=== PATIENT | male | born 1955 | race Caucasian/White ===

== ENCOUNTER → 2019-10-28 13:07 | Outpatient (BNVA) | payer MEDICARE, SELFPAY | PROVIDERS: Visit Provider Nurse Practitioner Family | DX: E11.9 Type 2 diabetes mellitus without complications (principal); I10 Essential (primary) hypertension | CPT/HCPCS: 80053; 80061; 81000; 82044; 83036; 84443; 85025 ==

== ENCOUNTER → 2020-09-07 10:10 | Outpatient (BNVA) | payer MEDICARE, SELFPAY | PROVIDERS: Visit Provider Family Medicine | DX: E11.9 Type 2 diabetes mellitus without complications (principal); Z91.19 Patient's noncompliance with other medical treatment and regimen; I10 Essential (primary) hypertension; J44.9 Chronic obstructive pulmonary disease, unspecified | CPT/HCPCS: 36416; 82962 ==

== ENCOUNTER → 2020-12-22 00:01 | Outpatient (BNVA) | payer MEDICARE, SELFPAY | PROVIDERS: Visit Provider Nurse Practitioner Family | DX: Z20.822 Contact with and (suspected) exposure to COVID-19 (principal); J06.9 Acute upper respiratory infection, unspecified | CPT/HCPCS: 87635 ==

== ENCOUNTER → 2021-03-06 10:01 | Outpatient (BNVA) | payer MEDICARE, SELFPAY | DX: E11.9 Type 2 diabetes mellitus without complications (principal); M79.671 Pain in right foot; J44.9 Chronic obstructive pulmonary disease, unspecified; L03.115 Cellulitis of right lower limb; L03.116 Cellulitis of left lower limb; Z91.19 Patient's noncompliance with other medical treatment and regimen; E78.5 Hyperlipidemia, unspecified; I10 Essential (primary) hypertension; M25.532 Pain in left wrist | CPT/HCPCS: 80053; 80061; 82043; 82550; 83036; 83615; 84550; 85025; 85651 ==

== ENCOUNTER 2021-03-20 11:41 | Inpatient (IN) | payer MEDICARE, SELFPAY ==
[2021-03-20 12:27] VITALS: BP 139/79; PULSE 79; RESP 18; TEMP 36.4; O2SAT 100; BMI 21.4
--- NOTE | 2021-03-20 12:37 | XR_ITS ---
WS: [id number] Exam: XR toe RT min 2V [id number] Date/Time of Exam: 03/20/2021 12:50 PM Reason For Exam: L 5th The fifth toe is targeted for radiographic evaluation. No fracture or dislocation. There is soft tissue laceration edema of the fifth toe. XR/XR toe RT min 2V [id number] IMPRESSION: 1. No fracture or bony injury noted. 2. Soft tissue laceration and edema.
[2021-03-20 14:01] LABS: Glucose Point of Care 396 mg/dL (70-110)
--- NOTE | 2021-03-20 14:58 | ED_ITS ---
HPI - General Adult General: Chief complaint: Extremity Injury, Lower Stated complaint: L LITTLE TOE BLACK/PAINFUL,DIABETIC Time Seen by Provider: 03/20/21 14:39 History of Present Illness: HPI narrative: Patient is a 65-year-old male with a history of diabetes who presents the emergency room with chronic right foot gangrene with drainage x 1 month. Since that that has been progressively getting worse and patient has been in pain. Denies any fever/chill, nausea/vomiting, abdominal complaints, chest pain, SOB, or other issues at this time. Patient denies any trauma/IVDU. Onset: 1 month ago Duration:1 month Location:home Severity:severe Review of Systems Narrative: Constitutional: No fever, no chills. HEENT: No vision changes CV: No chest pain, no palpitations PULM: no cough, no dyspnea. GI: No abdominal pain, no N/V/D. : No dysuria MSKEL: No muscle pain, +R fifth digit gangrene with ulcerating foot wound SKIN: No new rashes, no lesions. NEURO: No headache, no focal weakness. HEME: No visible bruises PSYCH: Normal mood PFSH ED PFSH: Medical History Contact with chainsaw as cause of accidental injury Diabetes Diabetic neuropathy Hyperlipidemia Hypertension Smoking addiction Surgical History (Updated 03/20/21 @ 19:57 by Darren Albert MD) H/O hand surgery Chainsaw injury with nerve grafting from R ankle History of grafting procedure using peripheral nerve Family History Mother Diabetes Father Lung disease Social History Smoking and tobacco status: current every day smoker cigarettes Packs smoked per day: 1 Years cigarettes smoked: 46 Second hand smoke exposure: Yes Alcohol intake: current Alcohol intake frequency: 0-2 Drinks per Day Alcohol type: beer Caregiver/support person: Yes Lives independently: Yes Household members: significant other Marital status: service: No Current occupational status: disabled History of recent travel: No Current gender identity: Male Special lazarus needs: No Physical Exam Narrative: EXAM NARRATIVE: Head: Atraumatic Eyes: PERRL, conjunctiva without injection ENT: Mucous membrane moist NECK: Supple, ROM intact LUNGS: LCTAB, no crackles/rhonchi CV: RRR ABDOMEN: Soft, nontender in all quadrants EXTREMITY: Normal ROM SKIN: +R fifth toe gangrene and ulcerating lesion at the base of the 5th digit on the dorsal aspect, +neurovascular exam intact otherwise in the affected extremity NEURO: Awake and alert, no focal motor deficits PSYCH: Normal mood and affect Course Vital Signs: Vital signs: Vital Signs Temperature 98.4 F 03/22/21 20:00 Pulse Rate 72 03/22/21 20:36 Respiratory Rate 17 03/22/21 20:36 Blood Pressure 121/76 03/22/21 20:00 Pulse Oximetry 98 03/22/21 20:36 MDM - General Adult MDM Narrative: Medical decision making narrative: Pt is a 65-year-old male with history of diabetes presents emergency room 1 month of worsening right lower extremity pain, ulcerating wound, and dry gangrene of the fifth toe. On exam, patient is hemodynamically stable. Patient is noted to have a dry gangrene and infected diabetic ulcer of the RLE. X-ray negative for any gas pattern. White count within normal limit. Case was discussed with Dr. Ledesma who recommended antibiotics and surgical debridement. Patient received vancomycin and Zosyn in the emergency room. Disposition: Admission Lab Data: Labs: Lab Results 03/20/21 03/20/21 03/20/21 13:56 15:26 15:26 WBC 8.4 10^3/uL 10^3/ uL (4.0-10.0) RBC 4.48 10^6/uL 10^6 /uL (4.1-5.3) Hgb 13.7 g/dL g/dL (11.7-16.6) Hct 39.6 % L % (42.0-52.0) MCV 88.4 fl fl (80-94) MCH 30.6 pg pg (28.0-34.0) MCHC 34.6 g/dL g/dL (30.0-36.0) RDW 12.5 % % (12.1-15.1) Plt Count 329 10^3/cmm 10^3 /cmm (130-400) MPV 8.9 fL fL (7.4-10.4) Neut % (Auto) 64.2 % % Lymph % (Auto) 26.7 % % Traverse % (Auto) 5.7 % % Eos % (Auto) 2.3 % % Baso % (Auto) 0.7 % % Neut # (Auto) 5.37 10^3/uL 10^3 /uL (1.8-7.7) Lymph # (Auto) 2.2 10^3/uL 10^3/ uL (0.8-4.8) Traverse # (Auto) 0.5 10^3/uL 10^3/ uL (0.2-0.9) Eos # (Auto) 0.2 10^3/uL 10^3/ uL (0.0-0.8) Baso # (Auto) 0.1 10^3/uL 10^3/ uL (0.0-0.1) Nucleated RBC % (a uto) 0 % % Nucleated RBCs # 0.0 /100WBC /100W BC ESR Sodium 130 mmol/L L mmol /L (136-145) Potassium 4.5 mmol/L mmol/L (3.5-5.1) Chloride 94 mmol/L L mmol/ L (98-107) Carbon Dioxide 26 mmol/L mmol/L (22-29) Anion Gap 14.5 (5-19) BUN 6 mg/dL L mg/dL (8-23) Creatinine 0.5 mg/dL L mg/dL (0.7-1.2) GFR Calculation 167.9 mL/min H mL /min (90-130) Glucose 413 mg/dL H mg/dL (65-115) POC Glucose 396 mg/dL H mg/dL (70-110) Calculated Osmolal ity 285 mOsm/kg mOsm/ kg (285-295) Lactate Calcium 8.8 mg/dL mg/dL (8.5-10.5) Total Bilirubin 0.2 mg/dL mg/dL (0.15-1.2) AST 9 U/L U/L (0-40) ALT 7 U/L U/L (0-41) Alkaline Phosphata se 116 IU/L IU/L (40-130) C-Reactive Protein 7.1 mg/L H mg/L (0.0-4.9) Total Protein 6.5 g/dL L g/dL (6.6-8.7) Albumin 3.8 g/dL g/dL (3.5-5.2) Globulin 2.7 g/dL g/dL (1.3-4.6) 03/20/21 03/20/21 15:26 15:26 WBC RBC Hgb Hct MCV MCH MCHC RDW Plt Count MPV Neut % (Auto) Lymph % (Auto) Traverse % (Auto) Eos % (Auto) Baso % (Auto) Neut # (Auto) Lymph # (Auto) Traverse # (Auto) Eos # (Auto) Baso # (Auto) Nucleated RBC % (a uto) Nucleated RBCs # ESR 19 mm/hr H mm/hr (0-10) Sodium Potassium Chloride Carbon Dioxide Anion Gap BUN Creatinine GFR Calculation Glucose POC Glucose Calculated Osmolal ity Lactate 1.2 mmol/L mmol/L (0.5-2.2) Calcium Total Bilirubin AST ALT Alkaline Phosphata se C-Reactive Protein Total Protein Albumin Globulin Discharge Plan Discharge Patient Disposition: Admitted As Inpatient Admit Provider: Darren Albert Clinical Impression: Diabetic foot ulcer, Dry gangrene Condition: Stable Discharge Diet: Diabetic Discharge Activity: Limit activity as instructed Coding Level of Care Code ED Dental Secretary for Ledy Watts
[2021-03-20 15:02] VITALS: BP 172/84; PULSE 78; RESP 16; O2SAT 98
--- NOTE | 2021-03-20 15:22 | PC.PHAR ---
Addendum entered by Tammie Chiang 03/20/21 15:33: pt states he finished the keflex filled on 03/06/21 10d/s Original Note: pt states he takes care of his own medications-pt states he hasnt taken any of his medications since sat-pt states he no longer takes lisinopril-hctz pt states not taken for months ext med history shows last filled 10/04/20 30d/s-pt states he is still taking glipizide er 5mg daily ext med history shows last filled 10/04/20 30d/s and metformin 1000mg bid last filled on 10/26/20 30d/s pt states he had a build up of these medications and thats why he hasnt filled recently-notes are made in the pharmacy comments
[2021-03-20] MEDS: piperacillin-tazobactam 4.5 GM in sodium chloride 0.9% (plus) 50 ML IV (15:25)
[2021-03-20 15:34] LABS: Basophils # 0.1 10^3/uL (0.0-0.1); Basophils % 0.7 %; Eosinophils # 0.2 10^3/uL (0.0-0.8); Eosinophils % 2.3 %; Hematocrit 39.6 % (42.0-52.0); Hemoglobin 13.7 g/dL (11.7-16.6); Lymphocytes # 2.2 10^3/uL (0.8-4.8); Lymphocytes % 26.7 %; Mean Corpuscular HGB Conc 34.6 g/dL (30.0-36.0); Mean Corpuscular Hemoglobin 30.6 pg (28.0-34.0); Mean Corpuscular Volume 88.4 fl (80-94); Mean Platelet Volume 8.9 fL (7.4-10.4); Monocytes # 0.5 10^3/uL (0.2-0.9); Monocytes % 5.7 %; Neutrophils # 5.37 10^3/uL (1.8-7.7); Neutrophils % 64.2 %; Nucleated Red Blood Cells % 0 %; Platelet Count 329 10^3/cmm (130-400); Red Blood Count 4.48 10^6/uL (4.1-5.3); Red Cell Distribution Width 12.5 % (12.1-15.1); White Blood Count 8.4 10^3/uL (4.0-10.0)
[2021-03-20 15:42] VITALS: BP 172/84; O2SAT 97
[2021-03-20] MEDS: vancomycin 1,000 MG in sodium chloride 0.9% 250 ML 250 MG IV (16:05)
[2021-03-20 16:06] LABS: Alanine Aminotransferase 7 U/L (0-41); Albumin Level 3.8 g/dL (3.5-5.2); Alkaline Phosphatase 116 IU/L (40-130); Anion Gap 14.5 (5-19); Aspartate Amino Transferase 9 U/L (0-40); Blood Urea Nitrogen 6 mg/dL (8-23); C Reactive Protein 7.1 mg/L (0.0-4.9); Calcium 8.8 mg/dL (8.5-10.5); Carbon Dioxide 26 mmol/L (22-29); Chloride 94 mmol/L (98-107); Globulin 2.7 g/dL (1.3-4.6); Glomerular Filtration Rate 167.9 mL/min (90-130); Glucose 413 mg/dL (65-115); Osmolality Calculated 285 mOsm/kg (285-295); Potassium 4.5 mmol/L (3.5-5.1); Sodium 130 mmol/L (136-145); Total Bilirubin 0.2 mg/dL (0.15-1.2); Total Protein 6.5 g/dL (6.6-8.7)
[2021-03-20 16:07] LABS: Lactate (Lactic Acid level) 1.2 mmol/L (0.5-2.2)
[2021-03-20 17:00] VITALS: RESP 16
[2021-03-20] MEDS: morphine 4 mg/mL SDV 1 mL IVP (17:00)
[2021-03-20 17:44] VITALS: BP 161/78; PULSE 68; O2SAT 99
--- NOTE | 2021-03-20 17:45 | PC.NURSE ---
PATIENT APPEARS MOURNFUL OVER FOOT PAIN AND POTENTIAL LOSS OF TOE. NURSE SPOKE WITH PATIENT ABOUT NEED TO MONITOR DIABETES AND BLOOD SUGARS TO HELP PREVENT FURTHER INJURIES. PATIENT VERBALIZED UNDERSTANDING. PATIENT HAS NO FURTHER NEEDS AT THIS TIME.
[2021-03-20 19:08] VITALS: BP 119/67; PULSE 79; O2SAT 97
--- NOTE | 2021-03-20 19:32 | P.HP_ITS ---
Providers/Chief Complaint Admitting Physician: Darren Albert Primary Care Provider: Ema Smalls, INTERIM CONTROLLER- Chief Complaint: L LITTLE TOE BLACK/PAINFUL,DIABETIC History of Present Illness Pleasant 65-year-old gentleman with history of smoking addiction, diabetes with diabetic neuropathy, HTN, HLD, for 1 month has had progressive nonhealing wound with blackening of the fifth right toe, open wound with drainage over the fourth and fifth metatarsal. Denies fever or chills. Wound has not been healing, hurting, so he came for evaluation to the ER. He denies other systemic symptoms. He denies chest pain or pressure. He takes aspirin occasionally, denies history of AZ, is not sure if may have had a stroke in the past, reporting some numbness on the right side of his face which is chronic. His ambulation is not limited by shortness of breath and he states he is able to walk a good distance other than being bothered by pain in his foot. Review of Systems Const: Denies: fever(s), chills, body aches or malaise Eyes: Denies: change in vision or eye redness ENMT: Denies: throat pain, oral sores or ear or mastoid pain Card: Denies: chest pain, edema, pre-syncope or dyspnea on exertion Resp: Denies: dyspnea, productive cough, change in phlegm color or hemoptysis GI: Denies: abdominal pain, nausea, vomiting, diarrhea, constipation, hematochezia or melena : Denies: flank pain, difficulty urinating, urinary frequency or hematuria Musc: Reports: other (R foot pain); Denies: back pain, joint swelling or joint redness Skin/Breast: Reports: new lesions and non-healing lesions; Denies: rash Neuro: Denies: headache(s), numbness in extremities, weakness in extremities, dizziness, confusion or seizure-like activity Endo: Denies: polyuria or polydipsia Jose/Lymph: Denies: easy bleeding or purpura All/Imm: Denies: urticaria, throat swelling or tongue swelling Medications/Allergies Home Medications Medication Instructions Recorded Confirmed Last Taken Type albuterol sulfate 90 mcg/actuation 1 inh INHALATION QID PRN #6.7 g 03/06/21 03/20/21 Unknown Rx aerosol inhaler blood-glucose meter #1 ea 03/06/21 03/20/21 Unknown Rx gabapentin 100 mg capsule 100 mg PO TID 30 Days #90 cap 03/06/21 03/20/21 03/17/21 Rx aspirin 325 mg PO Q4H PRN 03/20/21 03/20/21 03/17/21 History glipizide 5 mg PO BEDTIME 03/20/21 03/20/21 03/17/21 History metformin 1,000 mg PO BID 03/20/21 03/20/21 Unknown History Allergies Allergy/AdvReac Type Severity Reaction Status Date / Time No Known Allergies Allergy Verified 03/20/21 15:24 PFSH Acute PFSH: Medical History Contact with chainsaw as cause of accidental injury Diabetes Diabetic neuropathy Hyperlipidemia Hypertension Smoking addiction Surgical History (Updated 03/20/21 @ 19:57 by Darren Albert MD) H/O hand surgery Chainsaw injury with nerve grafting from R ankle History of grafting procedure using peripheral nerve Family History Mother Diabetes Father Lung disease Social History Smoking and tobacco status: current every day smoker cigarettes Packs smoked per day: 1 Years cigarettes smoked: 46 Second hand smoke exposure: Yes Alcohol intake: current Alcohol intake frequency: 0-2 Drinks per Day Alcohol type: beer Caregiver/support person: Yes Lives independently: Yes Household members: significant other Marital status: service: No Current occupational status: disabled History of recent travel: No Current gender identity: Male Special lazarus needs: No Vitals/I&O/Wt Last Vital Signs Temp 97.5 F L 03/20/21 12:27 Pulse 79 03/20/21 19:08 Resp 16 03/20/21 17:00 BP 119/67 03/20/21 19:08 Pulse Ox 97 03/20/21 19:08 03/20/21 03/20/21 03/20/21 06:59 14:59 22:59 Intake Total 50 / 50 Balance 50 / 50 Weight last 48 hrs Weight 65.771 kg Physical Exam Narrative: EXAM NARRATIVE: Accompanied by his children. Const: COMMON NORMALS: no acute distress and patient oriented x3 HENMT: COMMON NORMALS: oropharynx normal Neck/C-Spine: COMMON NORMALS: no JVD Resp: COMMON NORMALS: normal respiratory effort and clear to auscultation bilaterally AUSCULTATION: clear to auscultation bilaterally Cardio: COMMON NORMALS: no JVD, regular rhythm, S1 normal heart sound present, S2 normal heart sound present and No murmurs present (Cardio) RHYTHM: regular rhythm HEART SOUNDS: S1 normal heart sound present and S2 normal heart sound present GI: COMMON NORMALS: Normal to inspection, nondistended, normoactive bowel sounds present, Soft to palpation and non-tender PALPATION: Yes Soft to palpation Extremity: COMMON NORMALS: no joint enlargement and no pedal edema OTHER: Dry gangrene of R 5th toe. Wedge-shaped wound/ulceration from base of fifth toe and interdigital space extending to about third of dorsal foot with necrotic tissue, small amount of drainage Neuro: COMMON NORMALS: patient oriented x3 and moves all extremities Skin: COMMON NORMALS: no rashes or lesions noted GENERAL SKIN EXAM: no rashes or lesions noted Data : 03/20/21 15:26 03/20/21 15:26 Micro: Microbiology 03/20/21 15:31 Blood Culture - Preliminary Blood SPECIMEN COLLECTED 03/20/21 15:11 Blood Culture - Preliminary Blood SPECIMEN COLLECTED A&P Assessment and plan (1) Diabetic foot ulcer: Nonhealing ulceration over the past month progressing to right fifth digit gangrene, wound of the dorsal foot of unknown depth with persistent drainage, necrotic tissue and surface. Discussed with podiatry. Continue antibiotic coverage at this time. Cultures requested. Plan is for additional assessment by YOVANY. Possible debridement in OR tomorrow. Patient requested if possible to consider local anesthesia. Dopplerable but not palpable DP and PT pulses. She denies history of AZ, reports is able to walk a good distance without breathing limiting exertion. Consideration will need to be given to possible osteomyelitis given persistent drainage over the last month, depending on bone exposure during debridement, consideration of possible MRI otherwise. He denies any overt injury to his foot. Denies walking barefoot. Does have neuropathy, and also contribution after had had remote nerve harvesting from the right ankle for grafting during left hand repair after chainsaw injury. Status: Acute (2) Gangrene of toe of right foot: Status: Acute (3) Smoking addiction: Discussed smoking cessation with him for 5 minutes. Encouraged him to quit as continued smoking will impede healing, will lead to progressive cardiovascular disease, with risk of PAD, AZ, CVA, as well as risk of cancer. He verbalized understanding. Nicotine replacement. Continue to encourage cessation. Status: Acute (4) Type 2 diabetes mellitus: SSI Status: Acute Qualifiers: Diabetes mellitus nursing home insulin use: without nursing home use Diabetes mellitus complication status: without complication Qualified Code(s): E11.9 - Type 2 diabetes mellitus without complications (5) Diabetic neuropathy: Gabapentin. Status: Acute Attestations Medical Necessity Statement*: Admission of over 2 midnights daily needed for assessment management of nonhealing diabetic wound of left foot with gangrene, suspected deep soft tissue infection with persistent drainage requiring surgical intervention. 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
--- NOTE | 2021-03-20 19:56 | PM.CONSULT ---
Providers/Reason For Consult Consulting Physician/Specialty*: Bert Ledesma D.P.M. Reason for Consult*: Diabetic foot infection with gangrene right foot Attending Physician: Darren Albert Primary Care Provider: [facility] History of Present Illness History of Present Illness Maco Ortiz Jr is a 65 year old male admitted to the hospital service for gangrene right foot 1 month in duration. Endorses pain to the right foot, has redness and drainage with a necrotic right fifth toe and a wound extending to the dorsum of the right forefoot. Past medical history significant for diabetes, current everyday smoker, neuropathy, hypertension and hyperlipidemia. Patient was seen by family practice has been given ceftriaxone as well as Keflex. Sed rate was 80 with outpatient labs, on admission elevated CRP. A1c last taken 11.1. Patient denies any subjective nausea, vomiting, fever, chills, shortness of breath or chest pain. Review of Systems General: Reports: 10 or more systems reviewed and unremarkable except in HPI and below Const: Denies: fever(s) or chills Card: Denies: chest pain or palpitations Resp: Denies: productive cough GI: Denies: abdominal pain, nausea or vomiting : Denies: flank pain Musc: Reports: extremity swelling, joint pain, joint stiffness, limited range of motion and deformity Skin/Breast: Reports: erythema, sores, nail changes and change in hair; Denies: rash Neuro: Reports: numbness in extremities, sensory changes and difficulty walking Psych: Denies: suicidal ideation Jose/Lymph: Denies: easy bruising Meds/Allergies Home Medications and Allergies Home Medications Medication Instructions Recorded Confirmed Last Taken Type albuterol sulfate 90 mcg/actuation 1 inh INHALATION QID PRN #6.7 g 03/06/21 03/20/21 Unknown Rx aerosol inhaler blood-glucose meter #1 ea 03/06/21 03/20/21 Unknown Rx gabapentin 100 mg capsule 100 mg PO TID 30 Days #90 cap 03/06/21 03/20/21 03/17/21 Rx aspirin 325 mg PO Q4H PRN 03/20/21 03/20/21 03/17/21 History glipizide 5 mg PO BEDTIME 03/20/21 03/20/21 03/17/21 History metformin 1,000 mg PO BID 03/20/21 03/20/21 Unknown History Allergies Allergy/AdvReac Type Severity Reaction Status Date / Time No Known Allergies Allergy Verified 03/20/21 15:24 PFSH Acute PFSH: Medical History Contact with chainsaw as cause of accidental injury Diabetes Diabetic neuropathy Hyperlipidemia Hypertension Smoking addiction Surgical History (Updated 03/20/21 @ 19:57 by Darren Albert MD) H/O hand surgery Chainsaw injury with nerve grafting from R ankle History of grafting procedure using peripheral nerve Family History Mother Diabetes Father Lung disease Social History Smoking and tobacco status: current every day smoker cigarettes Packs smoked per day: 1 Years cigarettes smoked: 46 Second hand smoke exposure: Yes Alcohol intake: current Alcohol intake frequency: 0-2 Drinks per Day Alcohol type: beer Caregiver/support person: Yes Lives independently: Yes Household members: significant other Marital status: service: No Current occupational status: disabled History of recent travel: No Current gender identity: Male Special lazarus needs: No Vitals/I&O/Wt Last Vital Signs Temp 97.5 F L 03/20/21 12:27 Pulse 79 03/20/21 19:08 Resp 16 03/20/21 17:00 BP 119/67 03/20/21 19:08 Pulse Ox 97 03/20/21 19:08 03/20/21 03/20/21 03/20/21 06:59 14:59 22:59 Intake Total 50 / 50 Balance 50 / 50 Weight last 48 hrs Weight 145 lb Physical Exam Narrative: EXAM NARRATIVE: GENERAL: Patient is alert and oriented ?3 and in no acute distress. The following is a focused bilateral lower extremity exam. VASCULAR: Dorsalis pedis palpable. Posterior tibial arteries palpable. Capillary refill time less than 3 seconds to the distal hallux bilaterally. Calf is supple and nontender proximally and distally. Decreased pedal hair growth. No pedal edema. DP and PT pulses are biphasic with Doppler bilaterally. NEUROLOGICAL: Protective sensation intact 5/10 sites, tested with Earling Gilson monofilament to bilateral feet. DERMATOLOGICAL: Gangrene to the right foot with dark eschar to the right fifth toe, there is a wound extending to the dorsum of the right forefoot with extensor tendons visualized, proximal portion of the wound encompasses the dorsal aspect of the fourth and fifth metatarsals and extends to the fourth webspace has fibrotic base with purulence and malodor. Macerated fourth webspace. MUSCULOSKELETAL: Muscle strength 5 out of 5 in all 3 cardinal planes to left foot and ankle. Tenderness palpation at the right distal lateral forefoot. No pain with posterior calf squeeze. Data Micro: Micro: Microbiology 03/20/21 15:31 Blood Culture - Pr eliminary Blood SPECIMEN [facility] 03/20/21 15:11 Blood Culture - Pr eliminary Blood SPECIMEN [facility] A&P Assessment and plan (1) Diabetic peripheral neuropathy associated with type 2 diabetes mellitus: Status: Acute (2) Gangrene of toe of right foot: Status: Acute (3) Cellulitis of right foot: Status: Acute Per my read x-ray has soft tissue of edema at the medial aspect of the right fifth toe. Outpatient labs show elevated ESR and white count, on admission white count is normal, elevated CRP. Failed outpatient antibiotics included ceftriaxone and Keflex. Uncontrolled diabetes with neuropathy and angiopathy last A1c 11.1. I am recommending incision and debridement of devitalized tissue down to including bone right foot, 1 toe amputation of the right fifth toe and debridement of wound with intraoperative wound cultures to help guide antibiotics. Anticipate possibility for IV antibiotics with PICC line on discharge with wound care follow-up. Patient scheduled for surgical debridement tomorrow morning 7 AM 03/20/2021 he is to be n.p.o. at midnight. Coding Level of Care Code Acute Entry Level Account Representative for Ledy Watts Diagnoses Diabetic peripheral neuropathy associated with type 2 diabetes mellitus E11.42 Gangrene of toe of right foot I96 Cellulitis of right foot L03.115
[2021-03-20 22:07] VITALS: BMI 21.4
--- NOTE | 2021-03-20 22:20 | PC.PHAR ---
Vancomycin is dosed at 1500mg IVPB every 12 hours to produce a predicted trough level of 12.14 (population based pharmacokinetic analysis). A trough level has been ordered from the lab to be obtained before the fourth dose to confirm and adjust if needed.
[2021-03-20] MEDS: heparin 5,000 unit/mL INJ 1 mL 5000 UNIT SUBCUT (23:54)
[2021-03-20] MEDS: gabapentin 100 mg Capsule PO (23:55)
[2021-03-20] MEDS: vancomycin 1,500 MG/300 ML PIGGYBACK 150 MG IV (23:56)
[2021-03-21] VITALS (26 sets, daily range): BP systolic 51–171; BP diastolic 22–73; PULSE 60–84; RESP 16–20; TEMP 36.1–37.1; O2SAT 93–100; BMI 21.4
--- NOTE | 2021-03-21 | XR_ITS ---
WS: [id number] Exam: XR foot RT min 3V* [id number] Date/Time of Exam: 03/21/2021 8:19 AM Reason For Exam: INCISION AND DRAINAGE Comparison 03/20/2021. The fifth toe is absent. Small bone fragments of the proximal phalanx remain. The appearance suggests that of acute osteomyelitis. There is some osseous destruction of the medial margin of the head of t he fifth metatarsal suspicious for osteomyelitis involvement. No other sign of bone destruction. No a cute fracture. Posterior heel spur. Surgical clips along the posterior ankle. XR/XR foot RT min 3V* [id number] IMPRESSION: 1. Absence of the fifth toe with several small residual fragments of the proxim al phalanx remaining. There appears to be involvement with acute osteomyelitis with probable early of bone destruction of the head of the fifth metatarsal.
[2021-03-21] MEDS: piperacillin-tazobactam 3.375 GM in sodium chloride 0.9% (plus) 50 ML IV ×3 (01:57→17:13)
[2021-03-21] MEDS: morphine 4 mg/mL SDV 1 mL IVP ×4 (04:38→23:37)
[2021-03-21 06:09] LABS: Basophils # 0.1 10^3/uL (0.0-0.1); Basophils % 0.9 %; Eosinophils # 0.2 10^3/uL (0.0-0.8); Eosinophils % 2.8 %; Hematocrit 38.7 % (42.0-52.0); Hemoglobin 13.2 g/dL (11.7-16.6); Lymphocytes # 1.7 10^3/uL (0.8-4.8); Mean Corpuscular HGB Conc 34.1 g/dL (30.0-36.0); Mean Corpuscular Hemoglobin 29.9 pg (28.0-34.0); Mean Corpuscular Volume 87.8 fl (80-94); Mean Platelet Volume 9.4 fL (7.4-10.4); Monocytes # 0.5 10^3/uL (0.2-0.9); Neutrophils # 5.91 10^3/uL (1.8-7.7); Neutrophils % 70.1 %; Nucleated Red Blood Cells % 0 %; Platelet Count 334 10^3/cmm (130-400); Red Blood Count 4.41 10^6/uL (4.1-5.3); Red Cell Distribution Width 12.4 % (12.1-15.1); White Blood Count 8.5 10^3/uL (4.0-10.0)
[2021-03-21 06:29] LABS: Glucose Point of Care 358 mg/dL (70-110)
--- NOTE | 2021-03-21 06:44 | W.PM.OPSUD ---
Surgery/Procedure H&P Update DATE OF PROCEDURE: March 21, 2021 DATE H&P PERFORMED: 03/20/21 H&P UPDATE INFORMATION: I have reviewed H&P completed within last 30 days, I have examined patient prior to procedure, No changes to prior documentation and H&P is in [facility] E[facility] on date indicated PREOP DIAGNOSIS: Gangrene and cellulitis right foot PLANNED PROCEDURE: Operation Date: 03/21/21 07:10 Proposed Procedures p Incision And Drainage(Right) - Bert Ledesma DPM
--- NOTE | 2021-03-21 06:46 | P.OP_ITS ---
Operative Report Date of procedure: March 21, 2021 Pre-op Diagnosis: Gangrene and cellulitis right foot Post-op diagnosis: same Procedure Done: Incision and debridement right foot with right fifth toe amputation at the metatarsophalangeal joint. Specimens removed/disposition: Right fifth toe proximal phalanx to micro for gram stain and culture Pathology: none sent Pathology: Right fifth toe for permanent Surgeon: Bert Ledesma D.P.M. Svp Chief Marketing Officer: Srinivasan Anesthesia: MAC Estimated blood loss: 10 Tourniquet time: No tourniquet utilized IV fluids: 0 Urine output: 0 Complications: None Findings: Purulence at the dorsal foot wound with devitalized tissue down to bone of the fifth metatarsal. Proximal phalanx of the right fifth toe had obvious necrosis. Questionable fifth metatarsal head Condition: stable Disposition: PACU Brief History: Patient presents with gangrene right foot. Recommended incision and debridement. Patient is agreeable. Risks include pain, bleeding, numbness, infection, need for wound care, PICC line, higher levels of amputation, revascularization may be also indicated. Patient is agreeable wishes to proceed, n.p.o. since midnight, informed consent signed, Procedure: Under mild sedation the patient was brought to the operating room and remained on the gurney in supine position. A timeout was performed. Anesthesia was then administered by the anesthesia service. Local anesthesia injected by myself 30 cc of one-to-one mixture 1% lidocaine 0.5% Marcaine plain and a reverse Pineda block fashion. Well-padded pneumatic tourniquet applied to the right ankle this was never inflated throughout the duration of the procedure. Right lower extremity was scrubbed, prepped and draped utilizing normal aseptic technique. Attention was directed to the right foot, fifth toe was gangrenous this was sharply excised and amputated at the right fifth metatarsal phalangeal joint, fifth toe was sent to pathology for permanent. Base of the proximal phalanx of the fifth toe was devitalized with poor density and dark dusky ellison discoloration this bone at its most proximal base was sent to microbiology for bone culture. Incision was irrigated with copious amounts sterile skin solution. There is heavy purulence at the extensor tendons at the dorsal lateral forefoot at the right. This was sharply debrided of devitalized epidermis, dermis, subcutaneous tissue, tendon sheath and deep fascia. I was able to visualize the fifth metatarsal head had appropriate density and no obvious necrosis however this was directly adjacent to the necrotic fifth toe proximal phalanx. Incision was irrigated with copious amounts of sterile solution. Posterior debridement and surgical wound measured 7 cm x 6.5 cm x 0.5 cm. This was dressed with saline wet-to-dry. Patient tolerated procedure well and was transferred to the PACU with vital signs stable vascular status intact. Following a period of postoperative monitoring he will be transferred back to the floor will continue empiric IV antibiotics. I recommend planning for PICC line and IV antibiotics on discharge with home health and wound care follow-up. Patient given a postop shoe may be weightbearing for transfers only heel touch.
[2021-03-21] MEDS: insulin regular-human 10 UNIT in SYRINGE 1 EACH IVP (07:03)
--- NOTE | 2021-03-21 07:04 | ANES.PREANE2 ---
Pre-Anesthetic Assessment Pre-Anesthetic Assessment: Height/Weight: Height 1.75 m Weight 65.771 kg Temp Pulse Resp BP Pulse Ox 98.5 F 69 18 134/61 98 03/21/21 06:25 03/21/21 06:25 03/21/21 06:25 03/21/21 06:25 03/21/21 06:25 Preop Diagnosis: Gangrene and cellulitis right foot Proposed Procedure: Operation Date: 03/21/21 07:10 Proposed Procedures p Incision And Drainage(Right) - MELVIN CorralM Was Beta Genesis taken within 24 hours: N/A Was Clonidine taken within 24 hours: N/A Last intake: Intake Last Liquid Date 03/20/21 Last Liquid Time 08:00 Last Solid Date 03/19/21 Last Solid Time 12:00 Social: Social History: Tobacco and No alcohol Exam: Pre-Anes Outpt Exam: alert, oriented x 3 and regular rate & rhythm Airway: Submandibular: WNL Cervical ROM: WNL MP: 2 Dentition: False Pulmonary: Pulmonary: COPD Metabolic: Metabolic: DM (poorly controlled) and Hyperlipidemia Neuropsych: Neuropsych: Neuropathy Anesthetic Plan: ASA status: 3 Anesthesia: MAC Risk of > 500 ml blood loss (7ml/kg in children): No Meds/Allergies Current Medications: Current Medications Generic Name Dose Route Start Last Admin Trade Name Freq PRN Reason Stop Dose Admin Gabapentin 100 mg 03/20/21 22:06 03/20/21 23:55 Gabapentin 100 M g Capsule PO 100 mg TID STEPH Administration Piperacillin Sod/T azobactam 50 mls @ 12.5 mls /hr 03/21/21 00:01 03/21/21 05:43 Sod 3.375 gm/ So dium Chloride IV Infused Q8H STEPH Infusion Protocol Vancomycin/PEG/NAD A/Lysine/Water 1,500 mg in 300 m ls @ 150 mls/hr 03/20/21 23:00 03/21/21 01:58 Vancocin IV Infused Q12H STEPH Infusion Morphine Sulfate 4 mg 03/21/21 02:01 03/21/21 04:38 Morphine 4 Mg/Ml Sdv 1 Ml IVP 4 mg Q4H PRN Administration SEVERE PAIN PFSH Anesthesia PFSH: Medical History Contact with chainsaw as cause of accidental injury Diabetes Diabetic neuropathy Hyperlipidemia Hypertension Smoking addiction Surgical History (Updated 03/20/21 @ 19:57 by Darren Albert MD) H/O hand surgery Chainsaw injury with nerve grafting from R ankle History of grafting procedure using peripheral nerve Family History Mother Diabetes Father Lung disease Social History Smoking and tobacco status: current every day smoker cigarettes Packs smoked per day: 1 Years cigarettes smoked: 46 Second hand smoke exposure: Yes Alcohol intake: current Alcohol intake frequency: 0-2 Drinks per Day Alcohol type: beer Caregiver/support person: Yes Lives independently: Yes Household members: significant other Marital status: service: No Current occupational status: disabled History of recent travel: No Current gender identity: Male Special lazarus needs: No Data Anesthesia CBC & Chem 7: 03/21/21 05:35 03/20/21 15:26 Other Labs: Laboratory Results - last 48 hr 03/20/21 03/20/21 03/20/21 13:56 15:26 15:26 WBC 8.4 RBC 4.48 Hgb 13.7 Hct 39.6 L MCV 88.4 MCH 30.6 MCHC 34.6 RDW 12.5 Plt Count 329 MPV 8.9 Neut % (Auto) 64.2 Lymph % (Auto) 26.7 [place] % (Auto) 5.7 Eos % (Auto) 2.3 Baso % (Auto) 0.7 Neut # (Auto) 5.37 Lymph # (Auto) 2.2 [place] # (Auto) 0.5 Eos # (Auto) 0.2 Baso # (Auto) 0.1 Nucleated RBC % (auto) 0 Nucleated RBCs # 0.0 Sodium 130 L Potassium 4.5 Chloride 94 L Carbon Dioxide 26 Anion Gap 14.5 BUN 6 L Creatinine 0.5 L GFR Calculation 167.9 H Glucose 413 H POC Glucose 396 H Calculated Osmolality 285 Lactate Calcium 8.8 Total Bilirubin 0.2 AST 9 ALT 7 Alkaline Phosphatase 116 C-Reactive Protein 7.1 H Total Protein 6.5 L Albumin 3.8 Globulin 2.7 03/20/21 03/21/21 03/21/21 15:26 05:35 06:13 WBC 8.5 RBC 4.41 Hgb 13.2 Hct 38.7 L MCV 87.8 MCH 29.9 MCHC 34.1 RDW 12.4 Plt Count 334 MPV 9.4 Neut % (Auto) 70.1 Lymph % (Auto) 20.0 [place] % (Auto) 6.0 Eos % (Auto) 2.8 Baso % (Auto) 0.9 Neut # (Auto) 5.91 Lymph # (Auto) 1.7 [place] # (Auto) 0.5 Eos # (Auto) 0.2 Baso # (Auto) 0.1 Nucleated RBC % (auto) 0 Nucleated RBCs # 0.0 Sodium Potassium Chloride Carbon Dioxide Anion Gap BUN Creatinine GFR Calculation Glucose POC Glucose 358 H Calculated Osmolality Lactate 1.2 Calcium Total Bilirubin AST ALT Alkaline Phosphatase C-Reactive Protein Total Protein Albumin Globulin Micro: Microbiology 03/20/21 15:31 Blood Culture - Preliminary Blood SPECIMEN COLLECTED 03/20/21 15:11 Blood Culture - Preliminary Blood SPECIMEN COLLECTED Cardiac Studies: No Data to Display
[2021-03-21 07:09] LABS: Alanine Aminotransferase 6 U/L (0-41); Albumin Level 3.5 g/dL (3.5-5.2); Alkaline Phosphatase 93 IU/L (40-130); Anion Gap 12.1 (5-19); Aspartate Amino Transferase 8 U/L (0-40); Blood Urea Nitrogen 8 mg/dL (8-23); Calcium 8.6 mg/dL (8.5-10.5); Carbon Dioxide 24 mmol/L (22-29); Chloride 97 mmol/L (98-107); Globulin 2.8 g/dL (1.3-4.6); Glomerular Filtration Rate 167.9 mL/min (90-130); Glucose 266 mg/dL (65-115); Osmolality Calculated 276 mOsm/kg (285-295); Potassium 4.1 mmol/L (3.5-5.1); Sodium 129 mmol/L (136-145); Total Bilirubin 0.3 mg/dL (0.15-1.2); Total Protein 6.3 g/dL (6.6-8.7)
[2021-03-21] MEDS: lidocaine 1% INJ 20 mL INJECTION (07:15)
[2021-03-21] MEDS: sodium chloride 0.9% 1,000 ML 999 ML IV (08:12)
[2021-03-21] MEDS: cetylpyridinium Lozenge 1 EACH MUCOUS MEM (09:13)
[2021-03-21] MEDS: sodium chloride 0.9% 1,000 ML 30 ML IV (09:19)
[2021-03-21] MEDS: vancomycin 1,500 MG/300 ML PIGGYBACK 150 MG IV ×2 (10:22→22:27)
[2021-03-21] MEDS: insulin lispro 100 unit/1 mL SUBCUT ×2 (11:23→17:12)
[2021-03-21 12:04] LABS: Glucose Point of Care 180 mg/dL (70-110)
--- NOTE | 2021-03-21 12:06 | USCV_ITS ---
Maco Ortiz Jr Age: 65 Gender: M : 1955 Exam Date: 03/21/2021 14:56 Ordering Phys: Bert Ledesma DPM Technologist: Jj Wise Director Government Exam Location: [facility] [place] Indication: GANGRENE, TOE RIGHT LEFT Brachial 169.00 mmHg Brachial mmHg Pressure (mmHg) Waveform Pressure (mmHg) Waveform 100.00 Above Knee 162.00 112.00 Below Knee 122.00 116.00 TRAIN DISPATCHER 135.00 123.00 DPA 139.00 0.73 Ankle/Brachial Index 0.82 51.00 Pre-Exercise Toe Pressure 101.00 0.30 Pre-Exercise Toe/Brachial Index 0.60 FINDINGS Resting YOVANY of 0.73 on the right side and 0.82 on the left side Resting TBI of 0.3 on the right side and 0.6 on the left side CONCLUSIONS Features of moderate peripheral arterial disease on the right side Features of mild peripheral arterial disease on the left side Dr Riley Trejo MD [facility] (Electronically Signed) Final Date: 22 March 2021 23:03 S
--- NOTE | 2021-03-21 13:47 | P.PN_ITS ---
Subjective Subjective: Interval history: Doing well postoperatively. Denies trouble breathing. No chest pain or pressure. Blood pressure is improved. Vitals/I&O/Wt Last Vital Signs Temp 98.2 F 03/21/21 09:30 Pulse 66 03/21/21 12:00 Resp 18 03/21/21 13:43 BP 170/68 03/21/21 12:00 Pulse Ox 98 03/21/21 13:43 03/20/21 03/21/21 03/21/21 22:59 06:59 14:59 Intake Total 50 / 50 350 / 400 1551.875 / 1551.875 Output Total Balance 50 / 50 350 / 400 1541.875 / 1541.875 Weight last 48 hrs Weight 65.771 kg Weight 65.771 kg Weight 65.771 kg Physical Exam Const: COMMON NORMALS: no acute distress and patient oriented x3 HENMT: COMMON NORMALS: oropharynx normal Neck/C-Spine: COMMON NORMALS: no JVD Resp: COMMON NORMALS: normal respiratory effort and clear to auscultation bilaterally AUSCULTATION: clear to auscultation bilaterally Cardio: COMMON NORMALS: no JVD, regular rhythm, S1 normal heart sound present, S2 normal heart sound present and No murmurs present (Cardio) RHYTHM: regular rhythm HEART SOUNDS: S1 normal heart sound present and S2 normal heart sound present GI: COMMON NORMALS: Normal to inspection, nondistended, normoactive bowel sounds present, Soft to palpation and non-tender PALPATION: Yes Soft to palpation Extremity: COMMON NORMALS: no joint enlargement and no pedal edema OTHER: Postoperative dressing right foot. Neuro: COMMON NORMALS: patient oriented x3 and moves all extremities Skin: COMMON NORMALS: no rashes or lesions noted GENERAL SKIN EXAM: no rashes or lesions noted Data : 03/21/21 05:35 03/21/21 05:35 Micro: Microbiology 03/20/21 15:31 Blood Culture - Preliminary Blood SPECIMEN COLLECTED 03/20/21 15:11 Blood Culture - Preliminary Blood SPECIMEN COLLECTED A&P Assessment and plan (1) Diabetic foot ulcer: Status post amputation of fifth toe secondary to gangrene, with finding of ample purulence, status post I&D in the OR. Heavy purulence at the extensor tendons at the dorsal lateral forefoot at the right. Fifth metatarsal head with reported appropriate density and no obvious necrosis however, directly adjacent to necrotic fifth toe proximal phalanx. The latter was sent for culture. Due to the direct exposure recommendation as per podiatry is for him to complete the course of IV antibiotics of 6 weeks duration at least. Follow-up with wound care. Discussed with him. Arrangements for PICC line. Follow-up Gram stain results from micro to aid selection of antibiotic agent. Discussed with case management will need arrangements for home IV antibiotic. He states should not have difficulty with antibiotic infusions at home as can get help from his children living with him. RLE doppler w YOVANY, TBI ordered. Nonhealing ulceration over the past month progressing to right fifth digit gangrene, wound of the dorsal foot of unknown depth with persistent drainage, necrotic tissue at surface. He denies any overt injury to his foot. Denies walking barefoot. Does have neuropathy, and also contribution after had had remote nerve harvesting from the right ankle for grafting during left hand repair after chainsaw injury. Status: Acute (2) Gangrene of toe of right foot: Status: Acute (3) Smoking addiction: Nicotine replacement. Continue to encourage cessation. Status: Acute (4) Type 2 diabetes mellitus: SSI Status: Acute Qualifiers: Diabetes mellitus nursing home insulin use: without nursing home use Diabetes mellitus complication status: without complication Qualified Code(s): E11.9 - Type 2 diabetes mellitus without complications (5) Diabetic neuropathy: Gabapentin. Status: Acute Attestations Medical Necessity Statement*: Continue admission for assessment of management of nonhealing diabetic wound of right foot, with gangrenous fifth toe which is amputated, but also with heavy purulence after distal right foot with bone exposure, possible osteomyelitis, arrangements for IV antibiotic therapy post discharge. 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
--- NOTE | 2021-03-21 14:09 | ANE.PACU2 ---
Inpatient post-anesthesia follow up: Airway intact: Yes Vital signs: Temperature 98.2 F Pulse Rate [Monito r] 79 Pulse Rate 66 Respiratory Rate 18 Blood Pressure [Le ft Arm] 139/79 Blood Pressure 170/68 Pulse Oximetry 98 Oxygen Delivery Me thod Room Air Oxygen Flow Rate 8 Fraction of Inspir ed Oxygen Hydration adequate: Yes Nausea and vomiting: No Pain level: 2 Mental status: Baseline
[2021-03-21] MEDS: heparin 5,000 unit/mL INJ 1 mL 5000 UNIT INJECTION ×2 (15:27→23:37)
[2021-03-21] MEDS: gabapentin 100 mg Capsule PO ×2 (15:27→17:53)
[2021-03-21] MEDS: HYDROcodone-acetaminophen 5-325 mg Tablet 1 TAB PO (16:36)
[2021-03-21 16:50] LABS: Glucose Point of Care 321 mg/dL (70-110)
[2021-03-21] MEDS: sennosides-docusate Tablet 1 TAB PO (17:13)
[2021-03-21 18:20] LABS: Coronavirus Test Green County Not Detected
[2021-03-21 21:22] LABS: Glucose Point of Care 177 mg/dL (70-110)
[2021-03-22] VITALS (10 sets, daily range): BP systolic 118–156; BP diastolic 58–82; PULSE 63–81; RESP 16–18; TEMP 36.5–37; O2SAT 94–98
[2021-03-22] MEDS: piperacillin-tazobactam 3.375 GM in sodium chloride 0.9% (plus) 50 ML IV ×3 (01:52→17:03)
[2021-03-22] MEDS: HYDROcodone-acetaminophen 5-325 mg Tablet 1 TAB PO ×3 (01:56→17:03)
[2021-03-22 03:27] LABS: Basophils # 0.1 10^3/uL (0.0-0.1); Basophils % 0.7 %; Eosinophils # 0.2 10^3/uL (0.0-0.8); Eosinophils % 1.9 %; Hematocrit 37.4 % (42.0-52.0); Hemoglobin 12.7 g/dL (11.7-16.6); Lymphocytes # 1.9 10^3/uL (0.8-4.8); Lymphocytes % 23.7 %; Mean Corpuscular Hemoglobin 30.4 pg (28.0-34.0); Mean Corpuscular Volume 89.5 fl (80-94); Mean Platelet Volume 9.2 fL (7.4-10.4); Monocytes # 0.6 10^3/uL (0.2-0.9); Monocytes % 6.8 %; Neutrophils # 5.37 10^3/uL (1.8-7.7); Neutrophils % 66.7 %; Nucleated Red Blood Cells % 0 %; Platelet Count 316 10^3/cmm (130-400); Red Blood Count 4.18 10^6/uL (4.1-5.3); Red Cell Distribution Width 12.7 % (12.1-15.1); White Blood Count 8.1 10^3/uL (4.0-10.0)
--- NOTE | 2021-03-22 06:31 | PM.PN ---
Subjective Subjective: Interval history: 1 day status post right fifth toe amputation and incision and debridement right foot wound. Doing well. Continues with IV antibiotics. Tolerating regular diet. Patient denies any subjective nausea, vomiting, fever, chills, shortness of breath or chest pain. Vitals/I&O/Wt Last Vital Signs Temp 97.8 F 03/22/21 04:00 Pulse 63 03/22/21 04:00 Resp 16 03/22/21 04:00 BP 129/58 03/22/21 04:00 Pulse Ox 96 03/22/21 04:00 03/21/21 03/21/21 03/22/21 14:59 22:59 06:59 Intake Total 1551.875 / 1551.875 483.750 / 2035.625 984.375 / 3020.000 Output Total 310 / 310 800 / 1110 650 / 1760 Balance 1241.875 / 1241.875 -316.250 / 925.625 334.375 / 1260.000 Weight last 48 hrs Weight 145 lb Weight 145 lb Weight 145 lb Physical Exam Narrative: EXAM NARRATIVE: Patient is alert and oriented ?3 and in no acute distress. The following is a focused bilateral lower extremity exam. VASCULAR: Dorsalis pedis palpable. Posterior tibial arteries palpable. Capillary refill time less than 3 seconds to the distal hallux bilaterally. Calf is supple and nontender proximally and distally. Decreased pedal hair growth. No pedal edema. DP and PT pulses are biphasic with Doppler bilaterally. NEUROLOGICAL: Protective sensation intact 5/10 sites, tested with [place] Gilson monofilament to bilateral feet. DERMATOLOGICAL: Fibrogranular wound with improved appearance some granulation tissue at the margin no araceli purulence. No proximal lymphangitic streaking right foot or lower extremity. MUSCULOSKELETAL: Muscle strength 5 out of 5 in all 3 cardinal planes to left foot and ankle. Tenderness palpation at the right distal lateral forefoot. No pain with posterior calf squeeze. Status post right fifth toe amputation. Data : 03/22/21 02:57 03/21/21 05:35 Micro: Microbiology 03/21/21 07:24 Gram Stain - Final Toe - #1 03/20/21 15:31 Blood Culture - Preliminary Blood NEGATIVE TO DATE 03/20/21 15:11 Blood Culture - Preliminary Blood NEGATIVE TO DATE A&P Assessment and plan (1) Diabetic peripheral neuropathy associated with type 2 diabetes mellitus: Status: Acute (2) Gangrene of toe of right foot: Status: Acute (3) Cellulitis of right foot: Status: Acute Right fifth toe amputation with incision and debridement right foot wound secondary to gangrene and diabetic foot infection date of operation 03/21/2021. Bone culture preliminary results show gram-negative rods Twice daily saline wet-to-dry right foot wound dressing, will be continued by home health outpatient until wound care dictates further instruction Postop shoe when ambulating Plan for PICC line and follow-up wound care No further plans for surgical intervention to the right foot during this hospitalization patient okay for discharge from podiatry standpoint. Attestations Medical Necessity Statement*: Diabetic foot infection Coding Level of Care Code Acute Business Support Professional for [facility] Diagnoses Diabetic peripheral neuropathy associated with type 2 diabetes mellitus E11.42 Gangrene of toe of right foot I96 Cellulitis of right foot L03.115
[2021-03-22 06:46] LABS: Glucose Point of Care 228 mg/dL (70-110)
[2021-03-22 07:59] LABS: Glucose Point of Care 214 mg/dL (70-110)
[2021-03-22] MEDS: insulin lispro 100 unit/1 mL SUBCUT ×3 (08:37→17:11)
[2021-03-22] MEDS: gabapentin 100 mg Capsule PO ×3 (08:37→20:26)
[2021-03-22] MEDS: sennosides-docusate Tablet 1 TAB PO ×2 (08:37→17:04)
[2021-03-22] MEDS: heparin 5,000 unit/mL INJ 1 mL 5000 UNIT INJECTION ×2 (08:38→15:16)
[2021-03-22] MEDS: nicotine 21 mg Patch 1 PATCH TRANSDERMA (08:43)
[2021-03-22] MEDS: morphine 4 mg/mL SDV 1 mL IVP ×2 (08:48→20:26)
[2021-03-22 11:37] LABS: Vancomycin Trough 11.7 ug/mL (10-15)
[2021-03-22 12:50] LABS: Erythrocyte Sedimentation Rate 19 mm/hr (0-10)
--- NOTE | 2021-03-22 13:56 | XR_ITS ---
WS: [id number] PORTABLE CHEST HISTORY: PICC PLACEMENT COMPARISON: None available. Right-sided PICC line is present with tip in the mid to distal SVC. No complications. Mild interstitial thickening throughout the LEFT lung could be positional. No pleural effusion or pne umothorax. Cardiac size: Normal. Mediastinum/Aorta: Normal mediastinum. No osseous abnormality seen. XR/XR chest 1V portable [id number] IMPRESSION: Satisfactory placement right-sided PICC line.
[2021-03-22 17:17] LABS: Glucose Point of Care 271 mg/dL (70-110)
[2021-03-22 21:30] LABS: Glucose Point of Care 134 mg/dL (70-110)
--- NOTE | 2021-03-22 21:45 | P.PN_ITS ---
Subjective Subjective: Interval history: He is doing okay. Awaiting PICC line placement. Having pain in his right foot. Dressing changed today by podiatry. Vitals/I&O/Wt Last Vital Signs Temp 98.6 F 03/22/21 15:31 Pulse 72 03/22/21 20:36 Resp 17 03/22/21 20:36 BP 130/72 03/22/21 15:31 Pulse Ox 98 03/22/21 20:36 03/22/21 03/22/21 03/22/21 06:59 14:59 22:59 Intake Total 984.375 / 3020.000 1430 / 1430 1570 / 3000 Output Total 650 / 1760 1050 / 1050 1200 / 2250 Balance 334.375 / 1260.000 380 / 380 370 / 750 Weight last 48 hrs Weight 65.771 kg Weight 65.771 kg Physical Exam Const: COMMON NORMALS: no acute distress and patient oriented x3 HENMT: COMMON NORMALS: oropharynx normal Neck/C-Spine: COMMON NORMALS: no JVD Resp: COMMON NORMALS: normal respiratory effort and clear to auscultation bilaterally AUSCULTATION: clear to auscultation bilaterally Cardio: COMMON NORMALS: no JVD, regular rhythm, S1 normal heart sound present, S2 normal heart sound present and No murmurs present (Cardio) RHYTHM: regular rhythm HEART SOUNDS: S1 normal heart sound present and S2 normal heart sound present GI: COMMON NORMALS: Normal to inspection, nondistended, normoactive bowel sounds present, Soft to palpation and non-tender PALPATION: Yes Soft to palpation Extremity: COMMON NORMALS: no joint enlargement and no pedal edema OTHER: Postoperative dressing right foot. Neuro: COMMON NORMALS: patient oriented x3 and moves all extremities Skin: COMMON NORMALS: no rashes or lesions noted GENERAL SKIN EXAM: no rashes or lesions noted Data : 03/22/21 02:57 03/21/21 05:35 Micro: Microbiology 03/21/21 07:24 Gram Stain - Final Toe - #1 Tissue Culture - Preliminary Gram Negative Rods Gram Negative Rods#2 A&P Assessment and plan (1) Diabetic foot ulcer: Continue IV antibiotics. Dressing change. Pending arrangements for him to be able to continue IV antibiotic therapy for 6 weeks for complicated diabetic wound infection with bone exposure to purulent material of his necrotic wound. Status post amputation of right fifth toe. Anticipated IV antibiotics at least for additional therapy for now Levaquin and vancomycin together unless we get more information from Gram stain. PICC line requested appears placed this afternoon. RLE doppler w YOVANY, TBI ordered. Nonhealing ulceration over the past month progressing to right fifth digit gangrene, wound of the dorsal foot of unknown depth with persistent drainage, necrotic tissue at surface. He denies any overt injury to his foot. Denies walking barefoot. Does have neuropathy, and also contribution after had had remote nerve harvesting from the right ankle for grafting during left hand repair after chainsaw injury. Status: Acute (2) Gangrene of toe of right foot: Status: Acute (3) Smoking addiction: Nicotine replacement. Continue to encourage cessation. Status: Acute (4) Type 2 diabetes mellitus: SSI Status: Acute Qualifiers: Diabetes mellitus long term care administrator insulin use: without long term care administrator use Diabetes mellitus complication status: without complication Qualified Code(s): E11.9 - Type 2 diabetes mellitus without complications (5) Diabetic neuropathy: Gabapentin. Status: Acute Attestations Medical Necessity Statement*: Continue admission for cyst management of complicated right foot diabetic infection, disposition planning, arrangements for post discharge antibiotic therapy. 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
[2021-03-23] VITALS (7 sets, daily range): BP systolic 120–164; BP diastolic 72–90; PULSE 71–84; RESP 16–19; TEMP 36.5–36.9; O2SAT 96–98
[2021-03-23] MEDS: heparin 5,000 unit/mL INJ 1 mL 5000 UNIT INJECTION ×3 (00:11→15:44)
[2021-03-23] MEDS: HYDROcodone-acetaminophen 5-325 mg Tablet 1 TAB PO ×3 (01:34→13:27)
[2021-03-23] MEDS: piperacillin-tazobactam 3.375 GM in sodium chloride 0.9% (plus) 50 ML IV ×2 (02:48→09:07)
[2021-03-23 02:59] LABS: Basophils # 0.1 10^3/uL (0.0-0.1); Basophils % 0.8 %; Eosinophils # 0.2 10^3/uL (0.0-0.8); Eosinophils % 2.2 %; Hematocrit 34.7 % (42.0-52.0); Hemoglobin 11.7 g/dL (11.7-16.6); Lymphocytes % 28.3 %; Mean Corpuscular HGB Conc 33.7 g/dL (30.0-36.0); Mean Corpuscular Hemoglobin 30.2 pg (28.0-34.0); Mean Corpuscular Volume 89.4 fl (80-94); Mean Platelet Volume 9.4 fL (7.4-10.4); Monocytes # 0.5 10^3/uL (0.2-0.9); Monocytes % 6.7 %; Neutrophils # 4.43 10^3/uL (1.8-7.7); Neutrophils % 61.9 %; Nucleated Red Blood Cells % 0 %; Platelet Count 288 10^3/cmm (130-400); Red Blood Count 3.88 10^6/uL (4.1-5.3); Red Cell Distribution Width 12.7 % (12.1-15.1); White Blood Count 7.2 10^3/uL (4.0-10.0)
[2021-03-23 06:56] LABS: Glucose Point of Care 290 mg/dL (70-110)
[2021-03-23] MEDS: nicotine 21 mg Patch 1 PATCH TRANSDERMA (09:07)
[2021-03-23] MEDS: gabapentin 100 mg Capsule PO ×2 (09:07→15:43)
[2021-03-23] MEDS: sennosides-docusate Tablet 1 TAB PO (09:07)
[2021-03-23] MEDS: insulin lispro 100 unit/1 mL SUBCUT ×2 (09:08→12:41)
[2021-03-23 11:04] LABS: Glucose Point of Care 241 mg/dL (70-110)
[2021-03-23] MEDS: levofloxacin-dextrose 5 % 750 MG/150 ML PREMIX 100 MG IV (15:43)
--- NOTE | 2021-03-23 16:55 | PC.NURSE ---
Patient and son and daughter at bedside was shown how to do wound care at bedside. Patient and daughter stated understanding and daughter returned demonstration.
[2021-03-23 17:10] LABS: Glucose Point of Care 354 mg/dL (70-110)
--- NOTE | 2021-03-23 22:37 | PM.DCS ---
Discharge Providers Date of Admission: 03/20/21 15:36 Date of Discharge: March 23, 2021 Attending Provider at Admission: Darren Albert Attending Provider at Discharge: Darren Albert Primary Care Provider: GRACY Calvillo Diagnoses at Discharge Discharge Diagnosis (1) Diabetic foot ulcer: Status: Acute (2) Gangrene of toe of right foot: Status: Acute (3) Smoking addiction: Status: Acute (4) Type 2 diabetes mellitus: Status: Acute Qualifiers: Diabetes mellitus terminal system operator insulin use: without terminal system operator use Diabetes mellitus complication status: without complication Qualified Code(s): E11.9 - Type 2 diabetes mellitus without complications (5) Diabetic neuropathy: Status: Acute Reason for Visit Reason for Visit: L LITTLE TOE BLACK/PAINFUL,DIABETIC Hospital Course Hospital Course Pleasant 65-year-old gentleman with history of smoking addiction, diabetes, reported A1c of 7, diabetic neuropathy, HTN, HLD, for 1 month has had progressive nonhealing wound with blackening of the fifth toe, open wound with drainage over the fourth and fifth metatarsal. No systemic symptoms of sepsis. Was given ceftriaxone and Keflex by primary provider. Underwent incision and debridement right foot with right foot to amputation at metatarsophalangeal joint, irrigation, with specimen sent for culture. With noted heavy purulence at the extensor tendons at the dorsal lateral forefoot at the right. Sharply debrided. Fifth metatarsal head appeared of appropriate density and no obvious necrosis however, there condition to the necrotic fifth toe proximal phalanx. As such recommendation is for him to complete 6 weeks of IV antibiotic therapy. Initially treated with quinolone and vancomycin. PICC line placed. He is unable to afford the IV medications, and does not have part D insurance. As such additional options were discussed with him, with also arrangements being made for swing bed placement for him to complete antibiotic regimen, and continue wet-to-dry dressing changes to the right foot wound, closely follow glucose, as well as wound care follow-up. He had declined to further wait for arrangements for swing bed placement, requesting instead to be set up with outpatient infusions which he would attend daily. Gram stain so far showing 2 different gram-negative rods. Discussed with him that we do not have identification yet and as such it is difficult to select the exact antibiotic. He is empirically continued on Levaquin at this time once daily 750 mg IV without vancomycin, but understands that antibiotic selection at this time is imprecise, and a different antibiotic regimen may be needed in case of appearance of other organisms or lack of susceptibility. During hospitalization he was assessed by x-ray of the foot and toe, chest x-ray, also assessed by Doppler ultrasound which showed a resting YOVANY 0.73 in the right side and 0.82 on the left side, resting TBI 0.3 on the right side and 0.6 on the left side. In case of poor healing may benefit from additional investigation possibly referral to cardiology for revascularization of peripheral arterial disease. He is continued on aspirin and is started on statin. 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 Please assist him with the above issues and difficult latter task. He is to continue to optimize his diabetes. He is instructed to bear weight on the heel on the right side with surgical shoe on. Instructed to follow-up with wound care. Prior to discharge as per patient and family preference his son was taught dressing changes. Physical Exam Narrative: EXAM NARRATIVE: Accompanied by his children. Const: COMMON NORMALS: no acute distress and patient oriented x3 HENMT: COMMON NORMALS: oropharynx normal Neck/C-Spine: COMMON NORMALS: no JVD Resp: COMMON NORMALS: normal respiratory effort and clear to auscultation bilaterally AUSCULTATION: clear to auscultation bilaterally Cardio: COMMON NORMALS: no JVD, regular rhythm, S1 normal heart sound present, S2 normal heart sound present and No murmurs present (Cardio) RHYTHM: regular rhythm HEART SOUNDS: S1 normal heart sound present and S2 normal heart sound present GI: COMMON NORMALS: Normal to inspection, nondistended, normoactive bowel sounds present, Soft to palpation and non-tender PALPATION: Yes Soft to palpation Extremity: COMMON NORMALS: no joint enlargement and no pedal edema OTHER: Postoperative dressing right foot. Surgical shoe on. Neuro: COMMON NORMALS: patient oriented x3 and moves all extremities Skin: COMMON NORMALS: no rashes or lesions noted GENERAL SKIN EXAM: no rashes or lesions noted Discharge Data Data Completed and Pending: Completed Studies During Hospitalization Category Date Time Status CXRP [XR chest 1V portable [id number]] S tat Exams 03/22/21 13:56 Completed XR foot RT min 3V * [id number] Routine Exams 03/21/21 Completed XR toe RT min 2V [id number] Stat Exams 03/20/21 12:37 Completed Pathology: Surgic al [PTH] Routine Pth 03/21/21 07:42 [place] [id number] Rout ine Ultrasound 03/21/21 12:06 Completed Pending at discharge Category Date Time Status Blood Culture Sta t Lab 03/20/21 15:31 Results Tissue Culture an d Gram Stain Routi ne Lab 03/21/21 07:24 Results Labs from last 24 hours 03/23/21 03/23/21 03/23/21 17:07 11:00 06:53 WBC RBC Hgb Hct MCV MCH MCHC RDW Plt Count MPV Neut % (Auto) Lymph % (Auto) [place] % (Auto) Eos % (Auto) Baso % (Auto) Neut # (Auto) Lymph # (Auto) [place] # (Auto) Eos # (Auto) Baso # (Auto) Nucleated RBC % (a uto) Nucleated RBCs # POC Glucose 354 H 241 H 290 H 03/23/21 02:43 WBC 7.2 RBC 3.88 L Hgb 11.7 Hct 34.7 L MCV 89.4 MCH 30.2 MCHC 33.7 RDW 12.7 Plt Count 288 MPV 9.4 Neut % (Auto) 61.9 Lymph % (Auto) 28.3 [place] % (Auto) 6.7 Eos % (Auto) 2.2 Baso % (Auto) 0.8 Neut # (Auto) 4.43 Lymph # (Auto) 2.0 [place] # (Auto) 0.5 Eos # (Auto) 0.2 Baso # (Auto) 0.1 Nucleated RBC % (a uto) 0 Nucleated RBCs # 0.0 POC Glucose Vitals: Last Vital Signs Temp 97.9 F 03/23/21 17:20 Pulse 82 03/23/21 17:20 Resp 18 03/23/21 17:20 BP 120/72 03/23/21 17:20 Pulse Ox 98 03/23/21 17:20 Discharge Plan Discharge Patient Disposition: Home Condition: Stable Prescriptions: New levofloxacin in D5W 750 mg/150 mL piggyback 750 mg IV Q24H 42 Days Qty: 6300 RF: 0 Lipitor 40 mg tablet 40 mg PO QPM Qty: 90 RF: 0 Continued albuterol sulfate 90 mcg/actuation HFA aerosol inhaler 1 inh inhalation QID PRN (Reason: shortness of breath or wheezing) Qty: 6.7 RF: 4 gabapentin 100 mg capsule 100 mg PO TID 30 Days Qty: 90 RF: 0 (DME) blood-glucose meter Kit See Rx Instructions .Route Qty: 1 RF: 0 aspirin 325 mg Tablet 325 mg PO Q4H PRN (Reason: Pain) RF: 0 glipizide 5 mg tablet extended release 24hr 5 mg PO BEDTIME RF: 0 metformin 1,000 mg tablet 1,000 mg PO BID RF: 0 Discharge Orders: Discharge Order (Routine); Ordered 03/23/21 Ordered By: Darren Albert Other Ambulatory Orders: Physical Therapy Eval and Treat Outpatient (Order) Timeframe: 1 Day Facility: [facility] - Location: Physical Therapy Ordered By: Darren Albert Referrals: Nataliia Ramirez NP [Nurse Practitioner] - 4-7 days [facility]OUND [facility], [Staff Physician] - 4-7 days Discharge Diet: Diabetic and Low Cholesterol Discharge Activity: Limit activity as instructed Patient Instructions: Levofloxacin (By injection) (Levaquin, Levofloxacina), How to Stop Smoking (GEN), Cigarette Smoking and Your Health (GEN), Peripheral Artery Disease (GEN), Chronic Wound Care (GEN), How to Care for Your PICC (Peripherally Inserted Central Catheter) (GEN), Diabetes and Nutrition (GEN), Type 2 Diabetes Management for Adults (GEN) Activity Restrictions/Additional Instructions: You may bear weight on right heel with postop shoe for transfers. Please continue daily antibiotic infusions at outpatient center as discussed, starting 9:30AM tomorrow morning. Please note that antibiotic infusions are planned for 6 weeks of duration, but this may be adjusted by your wound care or primary care doctors depending on your progress. Please note also that final cultures are not yet available at this time, so we do not completely know that the organisms growing on culture will be susceptible to the antibiotic that you are going to take. Antibiotic may need to change if the organisms are found not susceptible to Levaquin. Please be sure to follow up with wound care. Please change dressings daily with saline, wet-to-dry, cover with gauze. Make sure to wear the surgical shoe. Do not walk barefoot. In case you experience worsening pain, bleeding, color change, high fever, or any other concerning symptoms, seek medical attention immediately. Monitor your blood sugars closely at least 3 times a day, work with your primary doctor to optimize control of diabetes. Good control of diabetes will be very important to help with wound healing. Please bring a diabetes sugar log to your doctor's appointment. Please discuss with your primary doctor regarding peripheral arterial disease in your right lower extremity which is found to be moderate. This may hinder healing, in case of difficulties with healing, please discuss referral for additional assessment and consideration whether interventional revascularization may be of benefit. Please note you are started on cholesterol medication to help reduce progression of peripheral arterial disease and other cardiovascular disease. You must stop smoking. Further smoking will lead to progression of peripheral arterial disease, further loss of tissue and gangrene with poor wound healing. In addition smoking increases your risk of heart attack, stroke, lung disease and cancer. Discharge Attestations Time Spent in Discharge Care*: greater than 30 min Quality Metrics Clinical Quality Measures During this hospital stay, did patient experience: None Coding Level of Care Code Acute [facility] note Diagnoses Diabetic foot ulcer E11.621; L97.509 Gangrene of toe of right foot I96 Smoking addiction F17.200 Type 2 diabetes mellitus E11.9 Diabetes mellitus terminal system operator insulin use: without terminal system operator use Diabetes mellitus complication status: without complication Diabetic neuropathy E11.40
--- NOTE | 2021-03-26 14:22 | PC.RESP ---
SMOKING CESSATION AND PULMONARY REHAB INFORMATION SENT TO PATIENT.
== END 2021-03-23 17:34 | disposition home or self-care (01) | DRG 256 ==
LOC: ER 17:33 → MEDSURG 19:19
PROVIDERS: Family Medicine; Podiatrist Foot & Ankle Surgery; Admitting Provider Internal Medicine; Emergency Provider Emergency Medicine; PCP Nurse Practitioner; Visit Provider Internal Medicine
PROC: 0Y6X0Z0 Detachment at Right 5th Toe, Complete, Open Approach (ICD-10-PCS; principal; 2021-03-21 07:00)
DX: E11.52 Type 2 diabetes mellitus with diabetic peripheral angiopathy with gangrene (principal); I96 Gangrene, not elsewhere classified; L97.419 Non-pressure chronic ulcer of right heel and midfoot with unspecified severity; L03.115 Cellulitis of right lower limb; E11.65 Type 2 diabetes mellitus with hyperglycemia; E11.40 Type 2 diabetes mellitus with diabetic neuropathy, unspecified; E11.621 Type 2 diabetes mellitus with foot ulcer; E78.5 Hyperlipidemia, unspecified; I10 Essential (primary) hypertension; F17.210 Nicotine dependence, cigarettes, uncomplicated; Z79.84 Long term (current) use of oral hypoglycemic drugs
CPT/HCPCS: 36415; 36416; 36569; 71045; 73630; 73660; 80053; 80202; 82962; 83605; 85025; 85651; 86140; 87040; 87070; 87077; 87176; 87186; 87205; 87635; 88305; 88311; 93923; 96365; 96367; 96372; 99285; J1644; J1815; J1956; J2250; J2270; J2543; J3370; J3490; J7030; J7040; J7050; L3260

== ENCOUNTER → 2021-03-24 09:16 | Day surgery (SDC) | payer MEDICARE, SELFPAY ==
[2021-03-24 10:00] VITALS: BP 102/67; PULSE 92; RESP 17; TEMP 37.3; O2SAT 99
[2021-03-24] MEDS: levofloxacin-dextrose 5 % 750 MG/150 ML PREMIX 100 MG IV (10:15)
[2021-03-24 11:45] VITALS: BP 136/78; PULSE 80; RESP 17; TEMP 37.3; O2SAT 100
[2021-03-25 09:35] VITALS: BP 131/74; PULSE 87; RESP 18; TEMP 37; O2SAT 99
[2021-03-25] MEDS: levofloxacin-dextrose 5 % 750 MG/150 ML PREMIX 150 MG IV (09:52)
[2021-03-25 11:36] VITALS: BP 119/71; PULSE 80; RESP 18; TEMP 37; O2SAT 98
== END ==
PROVIDERS: PCP Nurse Practitioner; Visit Provider Internal Medicine
DX: E11.621 Type 2 diabetes mellitus with foot ulcer (principal); L97.519 Non-pressure chronic ulcer of other part of right foot with unspecified severity; E11.52 Type 2 diabetes mellitus with diabetic peripheral angiopathy with gangrene; I96 Gangrene, not elsewhere classified; F17.210 Nicotine dependence, cigarettes, uncomplicated; E11.40 Type 2 diabetes mellitus with diabetic neuropathy, unspecified; Z79.84 Long term (current) use of oral hypoglycemic drugs
CPT/HCPCS: 96365; 96366; J1956

== ENCOUNTER 2021-04-02 08:09 | Outpatient (RCR) | payer MEDICARE, SELFPAY ==
[2021-03-26] MEDS: levofloxacin-dextrose 5 % 750 MG/150 ML PREMIX 100 MG IV (10:26)
[2021-03-26 10:53] VITALS: BP 121/71; PULSE 71; RESP 18; TEMP 36.2; O2SAT 99
[2021-03-27] MEDS: levofloxacin-dextrose 5 % 750 MG/150 ML PREMIX 150 MG IV (08:19)
[2021-03-27 08:28] VITALS: BP 151/87; PULSE 75; RESP 18; TEMP 36.1; O2SAT 98
[2021-03-28 08:28] VITALS: BP 125/94; PULSE 85; RESP 18; TEMP 36.1; O2SAT 99
[2021-03-28] MEDS: levofloxacin-dextrose 5 % 750 MG/150 ML PREMIX 150 MG IV (08:30)
[2021-03-29 08:00] VITALS: BP 153/95; PULSE 84; RESP 18; TEMP 36.7; O2SAT 98
[2021-03-29] MEDS: levofloxacin-dextrose 5 % 750 MG/150 ML PREMIX 150 MG IV (08:00)
[2021-03-30 08:15] VITALS: BP 111/78; PULSE 83; RESP 18; TEMP 36.8; O2SAT 97
[2021-03-30] MEDS: levofloxacin-dextrose 5 % 750 MG/150 ML PREMIX 150 MG IV (08:16)
[2021-03-31] MEDS: levofloxacin-dextrose 5 % 750 MG/150 ML PREMIX 150 MG IV (08:03)
[2021-03-31 08:14] VITALS: BP 112/86; PULSE 97; RESP 18; TEMP 36.4; O2SAT 97
[2021-04-01 08:40] VITALS: BP 111/78; PULSE 80; RESP 18; TEMP 36.9; O2SAT 94
[2021-04-01] MEDS: levofloxacin-dextrose 5 % 750 MG/150 ML PREMIX 100 MG IV (08:45)
[2021-04-02] MEDS: levofloxacin-dextrose 5 % 750 MG/150 ML PREMIX 150 MG IV (08:22)
[2021-04-02 08:38] VITALS: BP 152/85; PULSE 74; RESP 18; TEMP 36.3; O2SAT 100
== END 2021-04-24 23:59 | disposition home or self-care (01) ==
LOC: GILAB 08:09
PROVIDERS: PCP Nurse Practitioner; Visit Provider Internal Medicine
DX: E11.621 Type 2 diabetes mellitus with foot ulcer (principal); L97.519 Non-pressure chronic ulcer of other part of right foot with unspecified severity; E11.52 Type 2 diabetes mellitus with diabetic peripheral angiopathy with gangrene; I96 Gangrene, not elsewhere classified
CPT/HCPCS: 96365; 96366; J1956

== ENCOUNTER 2021-04-02 13:48 | Outpatient (CLI) | payer MEDICARE, SELFPAY | END 2021-04-02 13:49 | disposition home or self-care (01) | LOC: WOUND 13:52 | PROVIDERS: PCP Nurse Practitioner; Visit Provider Nurse Practitioner Family | DX: E11.621 Type 2 diabetes mellitus with foot ulcer (principal); L97.512 Non-pressure chronic ulcer of other part of right foot with fat layer exposed; F17.210 Nicotine dependence, cigarettes, uncomplicated; L97.519 Non-pressure chronic ulcer of other part of right foot with unspecified severity; E11.52 Type 2 diabetes mellitus with diabetic peripheral angiopathy with gangrene; I96 Gangrene, not elsewhere classified | CPT/HCPCS: 96365; J1956 ==

== ENCOUNTER 2021-04-16 09:33 | Outpatient (CLI) | payer MEDICARE, SELFPAY | END 2021-04-16 09:34 | disposition home or self-care (01) | LOC: WOUND 09:35 | PROVIDERS: PCP Nurse Practitioner; Visit Provider Emergency Medicine | DX: E11.621 Type 2 diabetes mellitus with foot ulcer (principal); L97.515 Non-pressure chronic ulcer of other part of right foot with muscle involvement without evidence of necrosis; F17.210 Nicotine dependence, cigarettes, uncomplicated; I10 Essential (primary) hypertension | CPT/HCPCS: 11043 ==

== ENCOUNTER 2021-04-30 14:30 | Outpatient (CLI) | payer MEDICARE, SELFPAY | END 2021-04-30 14:31 | disposition home or self-care (01) | LOC: WOUND 14:31 | PROVIDERS: PCP Nurse Practitioner; Visit Provider Nurse Practitioner Family | DX: E11.621 Type 2 diabetes mellitus with foot ulcer (principal); L97.515 Non-pressure chronic ulcer of other part of right foot with muscle involvement without evidence of necrosis; F17.210 Nicotine dependence, cigarettes, uncomplicated; I10 Essential (primary) hypertension | CPT/HCPCS: 11042 ==

== ENCOUNTER 2021-05-07 15:18 | Outpatient (CLI) | payer MEDICARE, SELFPAY | END 2021-05-07 15:19 | disposition home or self-care (01) | LOC: WOUND 15:20 | PROVIDERS: PCP Nurse Practitioner; Visit Provider Emergency Medicine | DX: E11.621 Type 2 diabetes mellitus with foot ulcer (principal); L97.512 Non-pressure chronic ulcer of other part of right foot with fat layer exposed; F17.210 Nicotine dependence, cigarettes, uncomplicated; I10 Essential (primary) hypertension | CPT/HCPCS: 11042; 97605; A6237; A6250 ==

== ENCOUNTER 2021-05-10 14:55 | Outpatient (CLI) | payer MEDICARE, SELFPAY | END 2021-05-10 14:56 | disposition home or self-care (01) | LOC: WOUND 14:59 | PROVIDERS: PCP Nurse Practitioner; Visit Provider Nurse Practitioner Family | DX: E11.621 Type 2 diabetes mellitus with foot ulcer (principal); L97.519 Non-pressure chronic ulcer of other part of right foot with unspecified severity | CPT/HCPCS: 97605; A6237; A6250 ==

== ENCOUNTER 2021-05-14 14:47 | Outpatient (CLI) | payer MEDICARE, SELFPAY | END 2021-05-14 14:48 | disposition home or self-care (01) | LOC: WOUND 14:48 | PROVIDERS: PCP Nurse Practitioner; Visit Provider Nurse Practitioner Family | DX: E11.621 Type 2 diabetes mellitus with foot ulcer (principal); L97.515 Non-pressure chronic ulcer of other part of right foot with muscle involvement without evidence of necrosis; F17.210 Nicotine dependence, cigarettes, uncomplicated; I10 Essential (primary) hypertension | CPT/HCPCS: 11042 ==

== ENCOUNTER 2021-05-21 14:41 | Outpatient (CLI) | payer MEDICARE, SELFPAY | END 2021-05-21 14:42 | disposition home or self-care (01) | LOC: WOUND 14:43 | PROVIDERS: PCP Nurse Practitioner; Visit Provider Nurse Practitioner Family | DX: E11.621 Type 2 diabetes mellitus with foot ulcer (principal); L97.512 Non-pressure chronic ulcer of other part of right foot with fat layer exposed; F17.210 Nicotine dependence, cigarettes, uncomplicated | CPT/HCPCS: 11042 ==

== ENCOUNTER 2021-05-29 09:04 | Outpatient (CLI) | payer OTHER, SELFPAY | END 2021-05-29 09:05 | disposition home or self-care (01) | PROVIDERS: PCP Nurse Practitioner; Visit Provider Orthopaedic Surgery | DX: E11.621 Type 2 diabetes mellitus with foot ulcer (principal); L97.512 Non-pressure chronic ulcer of other part of right foot with fat layer exposed; F17.210 Nicotine dependence, cigarettes, uncomplicated | CPT/HCPCS: 11042 ==

== ENCOUNTER 2021-06-05 09:09 | Outpatient (CLI) | payer OTHER, SELFPAY | END 2021-06-05 09:10 | disposition home or self-care (01) | LOC: WOUND 09:09 | PROVIDERS: PCP Nurse Practitioner; Visit Provider Emergency Medicine | DX: E11.621 Type 2 diabetes mellitus with foot ulcer (principal); L97.518 Non-pressure chronic ulcer of other part of right foot with other specified severity; F17.210 Nicotine dependence, cigarettes, uncomplicated | CPT/HCPCS: 11043 ==

== ENCOUNTER 2021-06-07 15:57 | Outpatient (CLI) | payer OTHER, SELFPAY | END 2021-06-07 15:58 | disposition home or self-care (01) | LOC: SPT 15:58 | PROVIDERS: PCP Nurse Practitioner; Visit Provider Nurse Practitioner Family | DX: Z46.89 Encounter for fitting and adjustment of other specified devices (principal); R26.89 Other abnormalities of gait and mobility | CPT/HCPCS: 97760 ==

== ENCOUNTER 2021-06-12 09:12 | Outpatient (CLI) | payer OTHER, SELFPAY | END 2021-06-12 09:13 | disposition home or self-care (01) | LOC: WOUND 09:13 | PROVIDERS: PCP Nurse Practitioner; Visit Provider Emergency Medicine | DX: E11.621 Type 2 diabetes mellitus with foot ulcer (principal); L97.512 Non-pressure chronic ulcer of other part of right foot with fat layer exposed; F17.210 Nicotine dependence, cigarettes, uncomplicated; I10 Essential (primary) hypertension | CPT/HCPCS: 11042 ==

== ENCOUNTER 2021-06-19 09:46 | Outpatient (CLI) | payer OTHER, SELFPAY | END 2021-06-19 09:47 | disposition home or self-care (01) | LOC: WOUND 09:46 | PROVIDERS: PCP Nurse Practitioner; Visit Provider Emergency Medicine | DX: E11.621 Type 2 diabetes mellitus with foot ulcer (principal); L97.512 Non-pressure chronic ulcer of other part of right foot with fat layer exposed; F17.210 Nicotine dependence, cigarettes, uncomplicated; I10 Essential (primary) hypertension | CPT/HCPCS: 11042 ==

== ENCOUNTER 2021-06-29 23:05 | Emergency (ER) | payer MEDICARE, SELFPAY ==
[2021-06-29 23:29] LABS: ABG PCO2 43.2 mmHg (35-45); Alveolar-Arterial Oxygen Gradi 73.6 mmHg (5-10); Arterial Blood Gas Hematocrit 35.6 % (42-52); Base Excess ABG -21.6 mmol/L (-2.0-2.0); Blood Gas Operator Identificat JB; Blood Gas Sample Site Femoral, left; Blood Gas Sample Type Arterial; Carboxyhemoglobin 0.8 %THgb (0.4-20.1); HCO3 ABG 9.7 mmol/L (22-26); HGB O2 Sat 86.2 % (95-100); Methemoglobin 0.7 % (0.4-1.5); Oxygen Device AMBU; Oxygen Saturation ABG 87.5; Potassium Level - ABG 2.6 mmol/L (3.5-5.0); Total Hemoglobin 11.6 g/dL (14-18)
[2021-06-29 23:30] LABS: ABG PH Result 6.96 (7.35-7.45)
--- NOTE | 2021-06-29 23:30 | ECG_ITS ---
[facility] Test Date: 2021-06-30 Pat Name: Maco Ortiz Department: Room: Gender: Male Jack Frame Tender: : 1955 Requested By: Kamaljit Tucker Order Number: [id number] Arely MD: Lia More M.D. Measurements Intervals [place] Rate: 65 P: [place]: QRS: -90 QRSD: 104 T: 53 QT: 426 QTc: 444 Interpretive Statements SUPRAVENTRICULAR RHYTHM LEFT AXIS DEVIATION [QRS AXIS < -30] LOW QRS VOLTAGE IN PRECORDIAL LEADS [QRS DEFLECTION < 1.0 mV IN CHEST LEADS] SEPTAL MYOCARDIAL INFARCTION , PROBABLY RECENT [40+ ms Q WAVE IN V1/V2] MARKED ST ELEVATION, CONSIDER ANTEROLATERAL INJURY ACUTE CO No previous ECG available for comparison Electronically Signed On 07-02-2021 8:46:05 BLOCK CHOPPER HAND by Lia More M.D. [id number]
--- NOTE | 2021-06-29 23:30 | XRR_ITS ---
PROCEDURE INFORMATION: Exam: XR Chest Exam date and time: 06/29/2021 11:30 PM Age: 65 years old Clinical indication: Patient HX: Code blue just prior to EMS arrival. Intubated. No further history. ; Additional info: Code blue. Intubated. TECHNIQUE: Imaging protocol: XR of the chest. Views: 1 view. COMPARISON: CR XR chest 1V portable [id number] 03/22/2021 2:23 PM FINDINGS: Tubes, catheters and devices: Endotracheal tube is 4 cm above aarti. Lungs: Extensive central ground-glass opacities of both lungs with poorly defined interstitial lung markings. Pleural spaces: Unremarkable. No pleural effusion. No pneumothorax. Heart/Mediastinum: Unremarkable. No cardiomegaly. Bones/joints: Unremarkable. XR/XR chest 1V portable [id number] IMPRESSION: 1. Satisfactory endotracheal tube position. 2. Widespread pulmonary edema changes of the lungs.
[2021-06-29 23:31] VITALS: BP 93/35; PULSE 0; RESP 16; TEMP 36; O2SAT 94; BMI 24.3
[2021-06-29 23:34] VITALS: RESP 21
[2021-06-29 23:59] LABS: Basophils % 0.2 %; Eosinophils % 0.5 %; Lymphocytes # 3.5 10^3/uL (0.8-4.8); Lymphocytes % 54.5 %; Mean Corpuscular HGB Conc 31.7 g/dL (30.0-36.0); Mean Corpuscular Hemoglobin 30.5 pg (28.0-34.0); Mean Platelet Volume 10.9 fL (7.4-10.4); Monocytes # 0.4 10^3/uL (0.2-0.9); Monocytes % 5.6 %; Neutrophils # 2.34 10^3/uL (1.8-7.7); Neutrophils % 36.2 %; Nucleated Red Blood Cells % 0.3 %; Platelet Count 66 10^3/cmm (130-400); Red Blood Count 1.74 10^6/uL (4.1-5.3); Red Cell Distribution Width 12.2 % (12.1-15.1); White Blood Count 6.4 10^3/uL (4.0-10.0)
[2021-06-29] MEDS: EPINEPHrine 2.5 MG in sodium chloride 0.9% 250 ML 2424 MG IV (23:59)
[2021-06-30 00:01] LABS: Glucose Point of Care 476 mg/dL (70-110)
[2021-06-30 00:06] LABS: Hematocrit 16.7 % (42.0-52.0); Hemoglobin 5.3 g/dL (11.7-16.6)
[2021-06-30 00:16] LABS: Alanine Aminotransferase 34 U/L (0-41); Alkaline Phosphatase 48 IU/L (40-130); Anion Gap 15.5 (5-19); Aspartate Amino Transferase 46 U/L (0-40); Blood Urea Nitrogen 22 mg/dL (8-23); Carbon Dioxide 15 mmol/L (22-29); Chloride 111 mmol/L (98-107); Globulin 0.5 g/dL (1.3-4.6); Glomerular Filtration Rate 217.3 mL/min (90-130); Glucose 362 mg/dL (65-115); Magnesium 1.5 mg/dL (1.7-2.3); Osmolality Calculated 306 mOsm/kg (285-295); Sodium 139 mmol/L (136-145); Total Bilirubin 0.2 mg/dL (0.15-1.2); Total Protein 1.5 g/dL (6.6-8.7)
[2021-06-30 00:18] LABS: Calcium 4.4 mg/dL (8.5-10.5); Potassium 2.5 mmol/L (3.5-5.1); Troponin(5th) Baseline 1030 ng/L (0-15)
[2021-06-30 00:28] LABS: ABG PCO2 56.4 mmHg (35-45); Arterial Blood Gas Hematocrit 39.1 % (42-52); Base Excess ABG -22.1 mmol/L (-2.0-2.0); Blood Gas Allen Test Pos; Blood Gas Operator Identificat CAK; Blood Gas Sample Site Femoral, left; Blood Gas Sample Type Arterial; HCO3 ABG 10.9 mmol/L (22-26); Oxygen Device VENT; PO2 ABG 70.3 mmHg (80.0-100.0)
[2021-06-30 00:33] VITALS: BP 78/52; PULSE 73; RESP 16; TEMP 34.6
--- NOTE | 2021-06-30 00:36 | XRR_ITS ---
PROCEDURE INFORMATION: Exam: XR Chest Exam date and time: 06/30/2021 12:36 AM Age: 65 years old Clinical indication: Device placement; Ng tube; Patient HX: Code blue - tube placement; Additional info: Intubation TECHNIQUE: Imaging protocol: XR of the chest. Views: 1 view. COMPARISON: CR XR chest 1V portable [id number] 06/29/2021 11:27 PM FINDINGS: Tubes, catheters and devices: Endotracheal tube is 4.5 cm above the aarti stable from prior. Lungs: Diffuse ground-glass opacities throughout both lungs. Pleural spaces: Small right pleural effusion. Cannot confidently exclude small right-sided pneumothorax. Heart/Mediastinum: Unremarkable. No cardiomegaly. Bones/joints: Unremarkable. Soft tissues: There may be right lateral lower chest wall soft tissue emphysema. XR/XR chest 1V portable [id number] IMPRESSION: 1. Stable position of endotracheal tube. 2. Central airspace opacities consistent with pulmonary edema or ARDS. 3. Right pleural effusion. Small right pneumothorax not excluded. Continued radiographic follow-up is recommended.
--- NOTE | 2021-06-30 00:39 | W.ED.GENADLT ---
HPI - General Adult General: Chief complaint: Cardiac Arrest/CPR Stated complaint: CODE BLUE Time Seen by Provider: 06/29/21 23:07 Source: EMS Mode of arrival: EMS Limitations: altered mental status History of Present Illness: 65-year-old male is here by EMS they state that they had been called to been having some shortness of breath and not feeling over the last 2 days actually about 4 to 5 minutes before arrival patient came into the room actively coding with no pulses and agonal respirations whether back any no known history besides that he has had not felt well for the last 2 days. No other history was noted he does have a history of diabetes and his blood sugar was 500. Does have a history of COPD as well. Review of Systems General: Reports: ROS unobtainable due to medical condition and ROS unobtainable due to mental status PFS ED PFSH: Medical History Contact with chainsaw as cause of accidental injury Diabetes Diabetic neuropathy Diabetic peripheral neuropathy associated with type 2 diabetes mellitus Dry gangrene Gangrene of toe of right foot Hyperlipidemia Hypertension Smoking addiction Type 2 diabetes mellitus Surgical History H/O hand surgery Chainsaw injury with nerve grafting from R ankle History of grafting procedure using peripheral nerve Family History Mother Diabetes Father Lung disease Social History Smoking and tobacco status: current every day smoker cigarettes Packs smoked per day: 1 Years cigarettes smoked: 46 Second hand smoke exposure: Yes Alcohol intake: current Alcohol intake frequency: 0-2 Drinks per Day Alcohol type: beer Caregiver/support person: Yes Lives independently: Yes Household members: significant other Marital status: service: No Current occupational status: disabled History of recent travel: No Current gender identity: Male Special lazarus needs: No Physical Exam Const: COMMON NORMALS: negative for patient oriented x3 EXAM LIMITATIONS: altered mental status HENMT: COMMON NORMALS: normocephalic, atraumatic and Normal external nose present HEAD & SCALP: normocephalic and atraumatic NOSE: Normal external nose present MOUTH: Normal oral and palatal mucosa present THROAT: posterior oropharynx normal Eye: COMMON NORMALS: Equal, round and reactive pupils present and conjunctivae normal CONJUNCTIVA: Yes conjunctivae normal PUPIL: Yes Equal, round and reactive pupils present Neck/C-Spine: COMMON NORMALS: full ROM and supple Chest: COMMONS NORMALS: normal inspection of the chest Resp: OTHER: Patient with a right have agonal respirations and was being [id number] Cardio: OTHER: No pulses were palpable GI: COMMON NORMALS: Normal to inspection, nondistended, normoactive bowel sounds present Extremity: COMMON NORMALS: normal to inspection Neuro: COMMON NORMALS: negative for patient oriented x3 and negative for moves all extremities Psych: COMMON NORMALS: negative for mental status grossly normal and negative for Normal thought process present THOUGHT PROCESS: abnormal Skin: COMMON NORMALS: no rashes or lesions noted GENERAL SKIN EXAM: no rashes or lesions noted Procedures Central Line Placement Right Femoral: Time Out Performed: Yes Patient Placed on Monitor/Pulse Ox: Yes MD Prep: mask, gown and gloves Central Line Prep: Povidone-Iodine 1% Ultrasound Used for Placement: Yes Central Line Lumen Inserted: triple Post Procedure: sutured in place, good blood return, all ports aspirated, flushed, capped and sterile dressing applied Post Procedure X-Ray: tip of catheter in good position Patient Tolerated Procedure: well Complications: none Intubation Time out performed: Yes sedative: Etomidate ET Tube Size: 8 Tube Secured Depth (cm): 25 Tube Secured Location: teeth Tube Placement Confirmation: visualized tube passing through cords, equal breath sounds bilaterally and no breath sounds over epigastrium Patient Tolerated Procedure: well Intubation Complications: none Course Vital Signs: Vital signs: Vital Signs Temperature 92.2 F L 06/30/21 00:54 Pulse Rate 94 06/30/21 00:54 Respiratory Rate 16 06/30/21 00:54 Blood Pressure 100/59 06/30/21 00:54 Pulse Oximetry 94 06/29/21 23:31 [facility] - General Adult Medical Decision Making Patient presented here initially in cardiac arrest. When initially arrived I did intubate him patient was given multiple rounds of epinephrine. After roughly 20 minutes we did have return of spontaneous circulation. I did a bedside ultrasound patient did have thready pulses on ultrasound he had severe heart strain on the right side. He had extreme bowing of his right ventricle and very little output from his left ventricle no cardiac Tamponod or effusions were noted. I believe at this time it was very likely he has had a massive PE causing his arrest. I did push TPA emergently due to him being extremely unstable he then coded again roughly 5 to 10 minutes later. He had another roughly 10 minutes and 2 more rounds of epinephrine and he had return of spontaneous circulation again. A central line was placed to start epinephrine drip he was making purposeful movements blood pressures in the 90s he arrested again at roughly 1:30 in the morning and time of was called at 140. Lab Data : 06/29/21 23:36 06/29/21 23:36 Radiology Impressions Chest X-Ray 06/30/21 00:36 IMPRESSION: 1. Stable position of endotracheal tube. 2. Central airspace opacities consistent with pulmonary edema or ARDS. 3. Right pleural effusion. Small right pneumothorax not excluded. Continued radiographic follow-up is recommended. Laboratory Results WBC 6.4 10^3/uL (4.0-10.0) 06/29/21 23:36 RBC 1.74 10^6/uL (4.1-5.3) L 06/29/21 23:36 Hgb 5.3 g/dL (11.7-16.6) L* 06/29/21 23:36 Hct 16.7 % (42.0-52.0) L* 06/29/21 23:36 MCV 96.0 fl (80-94) H 06/29/21 23:36 MCH 30.5 pg (28.0-34.0) 06/29/21 23:36 MCHC 31.7 g/dL (30.0-36.0) 06/29/21 23:36 RDW 12.2 % (12.1-15.1) 06/29/21 23:36 Plt Count 66 10^3/cmm (130-400) L 06/29/21 23:36 MPV 10.9 fL (7.4-10.4) H 06/29/21 23:36 Neut % (Auto) 36.2 % 06/29/21 23: Lymph % (Auto) 54.5 % 06/29/21 23:36 [place] % (Auto) 5.6 % 06/29/21 23:36 Eos % (Auto) 0.5 % 06/29/21 23:36 Baso % (Auto) 0.2 % 06/29/21 23:36 Neut # (Auto) 2.34 10^3/uL (1.8-7.7) 06/29/21 23:36 Lymph # (Auto) 3.5 10^3/uL (0.8-4.8) 06/29/21 23:36 [place] # (Auto) 0.4 10^3/uL (0.2-0.9) 06/29/21 23:36 Eos # (Auto) 0.0 10^3/uL (0.0-0.8) 06/29/21 23:36 Baso # (Auto) 0.0 10^3/uL (0.0-0.1) 06/29/21 23:36 Nucleated RBC % (auto) 0.3 % 06/29/21 23:36 Nucleated RBCs # 0.0 /100WBC 06/29/21 23:36 Specimen Type Arterial 06/30/21 00:17 Sample Site Femoral, left 06/30/21 00:17 ABG pH 6.90 (7.35-7.45) L* 06/30/21 00:17 ABG pCO2 56.4 mmHg (35-45) H 06/30/21 00:17 ABG pO2 70.3 mmHg (80.0-100.0) L 06/30/21 00:17 ABG HCO3 10.9 mmol/L (22-26) L 06/30/21 00:17 ABG O2 Saturation 87.5 06/29/21 22:17 ABG Base Excess -22.1 mmol/L (-2.0-2.0) L 06/30/21 00:17 Gilbert Test Pos 06/30/21 00:17 A-a O2 Gradient 73.6 mmHg (5-10) H 06/29/21 22:17 Hematocrit 39.1 % (42-52) L 06/30/21 00:17 Hgb O2 Saturation 86.2 % (95-100) L 06/29/21 22:17 Carboxyhemoglobin 0.8 %THgb (0.4-20.1) 06/29/21 22:17 Methemoglobin 0.7 % (0.4-1.5) 06/29/21 22:17 Total Hemoglobin 11.6 g/dL (14-18) L 06/29/21 22:17 Sodium 130.0 mmol/L (131-143) L 06/29/21 22:17 Potassium 2.6 mmol/L (3.5-5.0) L 06/29/21 22:17 Glucose 583.0 mg/dL (70-115) H 06/29/21 22:17 O2 Delivery Device Vent 06/30/21 00:17 FiO2 100.0 % 06/30/21 00:17 Air Pollution Engineer ID Cak 06/30/21 00:17 Sodium 139 mmol/L (136-145) 06/29/21 23:36 Potassium 2.5 mmol/L (3.5-5.1) L* 06/29/21 23:36 Chloride 111 mmol/L (98-107) H 06/29/21 23:36 Carbon Dioxide 15 mmol/L (22-29) L 06/29/21 23:36 Anion Gap 15.5 (5-19) 06/29/21 23:36 BUN 22 mg/dL (8-23) 06/29/21 23:36 Creatinine 0.4 mg/dL (0.7-1.2) L 06/29/21 23:36 GFR Calculation 217.3 mL/min (90-130) H 06/29/21 23:36 Glucose 362 mg/dL (65-115) H 06/29/21 23:36 POC Glucose 476 mg/dL (70-110) H 06/29/21 23:57 Calculated Osmolality 306 mOsm/kg (285-295) H 06/29/21 23:36 Calcium 4.4 mg/dL (8.5-10.5) L* 06/29/21 23:36 Magnesium 1.5 mg/dL (1.7-2.3) L 06/29/21 23:36 Total Bilirubin 0.2 mg/dL (0.15-1.2) 06/29/21 23:36 AST 46 U/L (0-40) H 06/29/21 23:36 ALT 34 U/L (0-41) 06/29/21 23:36 Alkaline Phosphatase 48 IU/L (40-130) 06/29/21 23:36 Troponin T Baseline 1030 ng/L (0-15) H* 06/29/21 23:36 Total Protein 1.5 g/dL (6.6-8.7) L 06/29/21 23:36 Albumin 1.0 g/dL (3.5-5.2) L 06/29/21 23:36 Globulin 0.5 g/dL (1.3-4.6) L 06/29/21 23:36 SARS-CoV-2 Ag (Rapid) Negative (Negative) 06/30/21 00:27 Blood Type B Negative 06/30/21 00:17 Rho(D) Type Negative 06/30/21 00:17 Antibody Screen Negative 06/30/21 00:17 Crossmatch See Detail 06/30/21 00:17 Critical Care Time Critical Care Time: Critical Care Time: Yes Total Critical Care Time: 75 Attestation: The high probability of a clinically significant, sudden or life threatening deterioration of the patient's [cv/pulm] system(s) required my full and direct attention, intervention and personal management. The critical care time is as shown. This time is in addition to time spent performing any reported procedures but includes the following: [x] Data and vital sign review and interpretation [x] Patient assessment, examination and intervention [x] Documentation [x] Medication orders and management Discharge Plan Discharge Patient Disposition: Admitted As Inpatient Clinical Impression: Cardiac arrest Condition: Stable Prescriptions: No Action albuterol sulfate 90 mcg/actuation HFA aerosol inhaler 1 inh inhalation QID PRN (Reason: shortness of breath or wheezing) Qty: 6.7 4RF gabapentin 100 mg capsule 100 mg PO TID 30 Days Qty: 90 0RF (DME) pen needle, diabetic [Easy Comfort Pen [place]] 32 gauge x 5/32 needle See Rx Instructions .Route Qty: 100 6RF Rx Instructions: THREE TIMES DAILY (DME) Blood Glucose Test Strip See Rx Instructions .Route Qty: 50 6RF Rx Instructions: TESTING THREE TIMES DAILY (DME) lancets [Comfort Lancets] Misc See Rx Instructions .Route Qty: 100 6RF Rx Instructions: TESTING THREE TIMES DAILY Lantus Solostar U-100 Insulin 100 unit/mL (3 mL) insulin pen 10 unit SUBCUT DAILY 30 Days Qty: 15 6RF Rx Instructions: start at 10 units daily for 1 week and increase by 5 units weekly with a goal of Blood sugar of 140 aspirin 325 mg Tablet 325 mg PO Q4H PRN (Reason: Pain) 0RF glipizide 5 mg tablet extended release 24hr 5 mg PO BEDTIME 0RF metformin 1,000 mg tablet 1,000 mg PO BID 0RF atorvastatin [Lipitor] 40 mg tablet 40 mg PO QPM Qty: 90 0RF Referrals: Ema Smalls FNP-JUAN [Primary Care Provider] - Coding Level of Care Code ED Assistant Teacher Primary for Chg Fwd Exam Comprehensive
[2021-06-30 00:54] VITALS: BP 100/59; PULSE 94; RESP 16; TEMP 33.4
[2021-06-30 01:23] LABS: SARS Covid-2 Antigen Negative (Negative)
[2021-06-30] MEDS: sodium chloride 0.9% 100 mL Bag 50 ML IV (01:33)
== END 2021-06-30 03:25 | disposition admitted as inpatient to this hospital (09) ==
PROVIDERS: Emergency Medicine; Emergency Provider Emergency Medicine; PCP Nurse Practitioner
DX: I46.9 Cardiac arrest, cause unspecified (principal); Z79.84 Long term (current) use of oral hypoglycemic drugs; Z79.82 Long term (current) use of aspirin; Z79.4 Long term (current) use of insulin; E11.42 Type 2 diabetes mellitus with diabetic polyneuropathy; E78.5 Hyperlipidemia, unspecified; I10 Essential (primary) hypertension; F17.210 Nicotine dependence, cigarettes, uncomplicated; Z20.822 Contact with and (suspected) exposure to COVID-19
CPT/HCPCS: 31500; 36416; 36430; 36556; 36600; 51702; 71045; 80051; 80053; 82330; 82803; 82805; 82962; 83735; 84484; 85025; 86850; 86900; 86920; 87070; 87205; 87426; 93005; 94002; 96365; 96367; 99291; 99292; C1751; J0171; J2997; J3010; J7050; P9016